=== PATIENT | male | born 1960 | race Caucasian/White ===

== ENCOUNTER 2016-08-24 09:17 | Emergency (ER) | payer OTHER ==
[~2016-08-24] VITALS: Ht 172.7 cm; Wt 86.6 kg
[~2016-08-24 09:17] MED LIST: ASCO10007; CETI-115 PO; HYDR-4246 PO; IBUP-1324 PO; MULT-806 PO; OMEG1CAP95 PO; ONDA4TAB4 PO
[2016-08-24 09:18] VITALS: Ht 172.7 cm; Wt 86.6 kg
--- OUTSIDE RECORDS SUMMARY | 2016-08-24 09:22 | XMS REPORT | Continuity of Care Document ---
Author Author [facility] Organization [facility] Address Unknown Phone Unavailable Allergies Active Description Code Type Severity Reaction Onset Reported/Identified Relationship to Patient Clinical Status Yes No Known Allergies NKMA N/A N/A 11/09/2014 Yes Aleve NKMA N/A N/A 09/02/2015 Medications Problems Procedures Results Test Result Range IgE (Immunoglobulin E) - 11/09/15 12:03 IgE (Immunoglobulin E) <20 IU/mL 0-100 Dog Dander IgE - 11/09/15 12:03 Dog Dander Class Class I NA Dog Dander IgE 0.11 IU/mL <0.05 Class Interpretation Guide IU/mL NA Cat Epithelium IgE - 11/09/15 12:03 Cat Epithelium Class Class I NA Cat Epithelium IgE 0.08 IU/mL <0.05 Dust Mites IgE (D.F.) - 11/09/15 12:03 Dust Mites (D.F) Class Negative NA Dust Mites IgE (D.F.) <0.05 IU/mL <0.05 Dust Mites IgE (D.P.) - 11/09/15 12:03 Dust Mites (D.P.)Class Negative NA Dust Mites IgE (D.P.) <0.05 IU/mL <0.05 Mold Allergy Panel - 11/09/15 12:03 Alternaria Tenuis Class Negative NA Alternaria Tenuis IgE <0.05 IU/mL <0.05 Aspergillus Fumigatus Class Negative NA Aspergillus Fumigatus IgE <0.05 IU/mL < 0.05 Auro pullulans Class Negative NA Auro. pullulans IgE <0.05 IU/mL <0.05 Corinne albicans Class Negative NA Corinne albicans IgE <0.05 IU/mL <0.05 Cladosporium Class Negative NA Cladosporium IgE <0.05 IU/mL <0.05 Epicocc Purpurancens Class Negative NA Epicocc. purpurancens IgE <0.05 IU/mL < 0.05 Fusar moniliforme Class Negative NA Fusar. moniliforme IgE <0.05 IU/mL <0.05 Helmin. halodes Class Negative NA Helmin. Halodes IgE <0.05 IU/mL <0.05 Mucor racemosis Class Negative NA Mucor racemosus IgE <0.05 IU/mL <0.05 Peniccillium notatum IgE <0.05 IU/mL < 0.05 Penicillium notatum Class Negative NA Phoma betae Class Negative NA Phoma betae IgE <0.05 IU/mL <0.05 Stemph botryosum Class Negative NA Stemph. botryosum IgE <0.05 IU/mL <0.05 Berm[place] Grass IgE - 11/09/15 12:03 Bermuda Grass Class Negative NA Bermuda Grass IgE <0.05 IU/mL <0.05 Clement Grass IgE - 11/09/15 12:03 Clement Grass Class Negative NA Clement Grass IgE <0.05 IU/mL <0.05 Horse Dander IgE - 11/09/15 12:03 Horse Dander IgE <0.35 kU/L Garrett IgE - 11/09/15 12:03 Garrett IgE <0.35 kU/L TSH with Reflex Free T4 - 01/10/16 11:18 TSH with Reflex Free T4 1.87 uIU/mL 0.35- 4.94 Encounters ACCT No. Visit Date/Time Discharge Status Pt. Type Provider Facility Loc./Unit Complaint [id number] 08/02/2013 16:16:00 08/02/2013 23 :59:59 CLS Outpatient [id number] 07/08/2013 08:11:00 07/08/2013 23 :59:59 CLS Outpatient [id number] 07/07/2013 10:54:00 07/07/2013 23 :59:59 CLS Outpatient
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
--- OUTSIDE RECORDS SUMMARY | 2016-08-24 09:22 | XMS REPORT | Referral Summary ---
Author Author [facility], Family Medicine Organization [facility] Address Unknown Phone Unavailable Care Team Providers Care Cabinetmaker Helper Name Role Phone Nadia Alexander Primary Care Physician [phone] Encounter VC Date(s): 09/20/15 - 09/20/15 [facility] [address] [place] [id number] Discharge Disposition: 01-Home or Self Care Attending Physician: Beto Alexander MD Admitting Physician: Beto Alexander MD Vital Signs Most recent to 1 oldest [Reference Range]: Blood Pressure 128/70 mmHg [90-140/60-90 mmHg] (09/20/15 9:14 AM) Problem List Condition Effective Dates Status Health Status Informant Allergic Active rhinitis/hayfever(Co nfirmed) Arthralgia of the Active pelvic region and thigh (finding)(Confirmed) Arthritis(Confirmed) Active Atrial Active fibrillation(Confirm ed) BPH (benign Active prostatic hyperplasia)(Confirm ed) Cervical spondylosis Active - C4-6(Confirmed) 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) Degenerative disc Active disease, cervical - with disc herniations a d spur complexes(Confirmed) Degenerative disc Active disease - lumbar/lumbosacral(C onfirmed) Diverticulitis(Confi Active rmed) Elevated blood Active pressure(Confirmed) Foreign body (FB) in Active soft tissue, residual(Confirmed) GERD without Active esophagitis(Confirme d) Chronic generalized Active pain(Confirmed) Graves 2006 Active disease(Confirmed) Headache(Confirmed) Active Hearing Active loss(Confirmed) Hip pain(Confirmed) Active Elevated Active cholesterol(Confirme d) Hyperthyroidism(Conf Active irmed) Elevated blood Active sugar(Confirmed) Irregular heart Active rhythm(Confirmed) IBS (irritable bowel Active syndrome)(Confirmed) Acute pain of right Active knee(Confirmed) Lateral Active epicondylitis - right(Confirmed) Low back pain Active (finding)(Confirmed) Lumbago(Confirmed) Active Lumbosacral Active spondylosis without myelopathy (disorder)(Confirmed ) Lumbosacral Active spondylosis(Confirme d) Medial epicondylitis Active - right(Confirmed) Migraine Active headache(Confirmed) Neck pain(Confirmed) Resolved Osteoarthritis(Confi Active rmed) Overactive Active bladder(Confirmed) Sleep 2000 Active apnea(Confirmed) Spinal stenosis of Active lumbar region (disorder)(Confirmed ) Spondylosis(Confirme Active d) Stenosis of spine - Active cervical and lateral recess(Confirmed) Synovitis of Active knee(Confirmed) Tendinitis of Active elbow(Confirmed) Thoracic or Active lumbosacral neuritis or radiculitis, unspecified(Confirme d) Allergies, Adverse Reactions, Alerts Substance Reaction Severity Status Aleve1 Active 1causes abdominal pain Medications ibuprofen 800 mg oral tablet 800 mg, Oral, q6hr, as needed for pain, # 90 tabs, 0 Refill(s), Pharmacy: [facility] #[id number], 800 mg Oral q6hr,PRN:as needed for pain Start Date: 07/20/14 Status: Ordered oxybutynin 5 mg oral tablet 5 mg 1 tabs, Oral, BID, as needed for urinary discomfort, # 60 tabs, 0 Refill(s) , Pharmacy: [facility] #[id number], 1 tabs Oral BID,PRN:as needed for urinary discomfort Start Date: 09/20/15 Status: Ordered Singulair 10 mg oral tablet 10 mg 1 tabs, Oral, qPM, # 30 tabs, 0 Refill(s), Pharmacy: [facility] # [id number], 1 tabs Oral qPM Start Date: 09/20/15 Status: Ordered Ventolin HFA 90 mcg/inh inhalation aerosol 1 puffs, Inhalation, q4hr, as needed for wheezing, # 8 g, 0 Refill(s), Pharmacy : [facility] #[id number], 1 puffs Inhalation q4hr,PRN:as needed for wheezing Start Date: 09/02/15 Status: Ordered Vitamin C 0 Refill(s) Start Date: 02/18/15 Status: Ordered vitamin E Oral, Daily, 0 Refill(s) Start Date: 02/18/15 Status: Ordered Results Hematology Most recent to 1 oldest [Reference Range]: WBC [4.8-10.8 9.0 10*3/uL 10*3/uL] (09/20/15 9:52 AM) RBC [4.60-6.20] 5.19 (09/20/15 9:52 AM) Hgb [14.0-18.0 16.2 gm/dL gm/dL] (09/20/15 9:52 AM) Hct [42.0-52.0 %] 46.5 % (09/20/15:52 AM) MCV [82.0-99.0 fL] 89.6 fL (09/20/15 9:52 AM) MCH [27.0-32.0 pg] 31.2 pg (09/20/15:52 AM) MCHC [32.0-36.0 34.8 gm/dL gm/dL] (09/20/15 9:52 AM) RDW [11.5-14.5 %] 12.7 % (09/20/15 9:52 AM) Platelet [150-400 245 10*3/uL 10*3/uL] (09/20/15 9:52 AM) MPV [8.8-14.8 fL] 10.7 fL (09/20/15 9:52 AM) Immature 0.3 % Granulocytes (09/20/15:52 AM) [0.0-1.0 %] Neutrophils [51-75 53 % %] (09/20/15 9:52 AM) Lymphocytes [20-46 31 % %] (09/20/15 9:52 AM) Monocytes [4-11 %] 10 % (09/20/15 9:52 AM) Eosinophils [0-4 %] 5 % *HI* (09/20/15 9:52 AM) Basophils [0-2 %] 1 % (09/20/15 9:52 AM) Neutro Absolute 4.76 10*3 [1.90-7.00 10*3] (09/20/15 9:52 AM) Lymph Absolute 2.78 10*3 [0.80-3.30 10*3] (09/20/15 9:52 AM) [place] Absolute 0.91 10*3 [0.30-1.00 10*3] (09/20/15 9:52 AM) Eos Absolute 0.48 10*3 [0.00-0.50 10*3] (09/20/15 9:52 AM) Baso Absolute 0.06 10*3 [0.00-0.20 10*3] (09/20/15 9:52 AM) Chemistry Most recent to 1 oldest [Reference Range]: Sodium Lvl [135-144 141 mEq/L mEq/L] (09/20/15:52 AM) Potassium Lvl 4.6 mEq/L [3.5-5.2 mEq/L] (09/20/15 9:52 AM) Chloride [99-111 103 mEq/L mEq/L] (09/20/15:52 AM) CO2 [23-31 mEq/L] 27 mEq/L (09/20/15:52 AM) AGAP [3-20] 11 (09/20/15:52 AM) BUN [8-26 mg/dL] 15 mg/dL (09/20/15:52 AM) Glucose Lvl [70-99 81 mg/dL mg/dL] (09/20/15:52 AM) Creatinine Lvl 0.86 mg/dL [0.72-1.25 mg/dL] (09/20/15:52 AM) eGFR [>60 mL/min] >60 mL/min 1 (09/20/15:52 AM) Calcium Lvl 9.5 mg/dL [8.9-10.5 mg/dL] (09/20/15:52 AM) Albumin Lvl [3.5-5.0 4.4 gm/dL gm/dL] (09/20/15:52 AM) Total Protein 6.4 gm/dL [6.4-8.3 gm/dL] (09/20/15 9:52 AM) Globulin [1.8-4.0 2.0 gm/dL gm/dL] (09/20/15 9:52 AM) ALT [0-55 U/L] 28 U/L (09/20/15 9:52 AM) AST [5-34 U/L] 22 U/L (09/20/15 9:52 AM) Alk Phos [40-150 58 U/L U/L] (09/20/15 9:52 AM) Bili Total [0.2-1.2 1.0 mg/dL mg/dL] (09/20/15 9:52 AM) PSA (wihout Reflex 1.2 ng/mL 2 Free) [0.0-3.5 (09/20/15 9:52 AM) ng/mL] Chol [0-199 mg/dL] 209 mg/dL *HI* (09/20/15 9:52 AM) Trig [0-149 mg/dL] 203 mg/dL *HI* (09/20/15 9:52 AM) HDL [40-84 mg/dL] 38 mg/dL *LOW* (09/20/15 9:52 AM) LDL [0-130 mg/dL] 130 mg/dL (09/20/15 9:52 AM) VLDL Cholesterol 41 mg/dL [0-28 mg/dL] *HI* (09/20/15 9:52 AM) Cardiac Risk 5.5 [0.0-5.7] (09/20/15 9:52 AM) 1Result Comment: Multiply eGFR results by 1.21 for race. 2Result Comment: AUA PSA Best Practice Guidelines: Age-Adjusted PSA Values by Ethnic Group Age Range Asians - Caucasians Americans 40-49 0-2.0 0-2.0 0-2.5 50-59 0-3.0 0-4.0 0-3.5 60-69 0-4.0 0-4.5 0-4.5 70-79 0-5.0 0-5.5 0-6.5 Urinalysis Most recent to 1 oldest [Reference Range]: UA Color Yellow (09/20/15 10:05 AM) UA Appear Clear (09/20/15 10:05 AM) UA pH [5.0-8.0] 5.5 (09/20/15 10:05 AM) UA Leuk Est Negative [Negative] (09/20/15 10:05 AM) UA Nitrite Negative [Negative] (09/20/15 10:05 AM) UA Protein Negative [Negative] (09/20/15 10:05 AM) UA Glucose Negative [Negative] (09/20/15 10:05 AM) UA Ketones Negative [Negative] (09/20/15 10:05 AM) UA Urobilinogen 0.2 mg/dL [<1.0 mg/dL] (09/20/15 10:05 AM) UA Bili [Negative] Negative (09/20/15 10:05 AM) UA Blood [Negative] Negative (09/20/15 10:05 AM) UA Spec Grav 1.014 [1.003-1.030] (09/20/15 10:05 AM) Type Voided (09/20/15 10:05 AM) Immunizations Vaccine Date Refusal Reason influenza virus vaccine, inactivated 02/14/14 influenza virus vaccine, live 03/02/10 zoster vaccine live 09/20/15 Procedures Procedure Date Related Diagnosis Body Site Collection of venous blood by venipuncture 09/20/15 Transforaminal approach - Right L2-3, L3-4 01/14/13 Transforaminal approach - right L4-5, L5-S1 12/30/12 Colonoscopy with polypectomy 2011 Procedure - right thumb nailbed matrix 2011 excision Full thickness skin graft from right index 01/02/11 and middle fingers Surgery - Volar V/Y advancement, right thumb 01/02/11 Tonsillectomy 05/09/09 Uvulopalatopharyngoplasty 05/09/09 Nasal septoplasty 11/2008 Reduction of nasal turbinate 11/2008 Nasal septoplasty 11/30/06 Colonoscopy1 06/26/05 Ablation of SVT 06/2003 Ablation - pulmonary 2002 Vasectomy 1986 Shoulder separation - left repair 1975 1Diverticulitis Social History Social History Type Response Smoking Status Former smoker Assessment and Plan Extracted from: Title: Ambulatory Patient Education Author: Beto Alexander MD Date: Family Medicine Cervical Sprain A cervical sprain is an injury in the neck in which the strong, fibrous tissues (ligaments) that connect your neck bones stretch or tear. Cervical sprains can range from mild to severe. Severe cervical sprains can cause the neck vertebrae to be unstable. This can lead to damage of the spinal cord and can result in serious nervous system problems. The amount of time it takes for a cervical sprain to get better depends on the cause and extent of the injury. Most cervical sprains heal in 1 to 3 weeks. CAUSES Severe cervical sprains may be caused by: Contact sport injuries (such as from football, rugby, wrestling, hockey, auto racing, gymnastics, diving, martial arts, or boxing). Motor vehicle collisions. Whiplash injuries. This is an injury from a sudden forward and backward whipping movement of the head and neck. Falls. Mild cervical sprains may be caused by: Being in an awkward position, such as while cradling a telephone between your ear and shoulder. Sitting in a chair that does not offer proper support. Working at a poorly designed computer station. Looking up or down for long periods of time. SYMPTOMS Pain, soreness, stiffness, or a burning sensation in the front, back, or sides of the neck. This discomfort may develop immediately after the injury or slowly, 24 hours or more after the injury. Pain or tenderness directly in the middle of the back of the neck. Shoulder or upper back pain. Limited ability to move the neck. Headache. Dizziness. Weakness, numbness, or tingling in the hands or arms. Muscle spasms. Difficulty swallowing or chewing. Tenderness and swelling of the neck. DIAGNOSIS Most of the time your health care provider can diagnose a cervical sprain by taking your history and doing a physical exam. Your health care provider will ask about previous neck injuries and any known neck problems, such as arthritis in the neck. X-rays may be taken to find out if there are any other problems, such as with the bones of the neck. Other tests, such as a CT scan or MRI, may also be needed. TREATMENT Treatment depends on the severity of the cervical sprain. Mild sprains can be treated with rest, keeping the neck in place (immobilization), and pain medicines. Severe cervical sprains are immediately immobilized. Further treatment is done to help with pain, muscle spasms, and other symptoms and may include: Medicines, such as pain relievers, numbing medicines, or muscle relaxants. Physical therapy. This may involve stretching exercises, strengthening exercises, and posture training. Exercises and improved posture can help stabilize the neck, strengthen muscles, and help stop symptoms from returning. HOME CARE INSTRUCTIONS Put ice on the injured area. Put ice in a plastic bag. Place a towel between your skin and the bag. Leave the ice on for 1520 minutes, 34 times a day. If your injury was severe, you may have been given a cervical collar to wear. A cervical collar is a two-piece collar designed to keep your neck from moving while it heals. Do not remove the collar unless instructed by your health care provider. If you have long hair, keep it outside of the collar. Ask your health care provider before making any adjustments to your collar. Minor adjustments may be required over time to improve comfort and reduce pressure on your chin or on the back of your head. Ifyou are allowed to remove the collar for cleaning or bathing, follow your health care provider's instructions on how to do so safely. Keep your collar clean by wiping it with mild soap and water and drying it completely. If the collar you have been given includes removable pads, remove them every 12 days and hand wash them with soap and water. Allow them to air dry. They should be completely dry before you wear them in the collar. If you are allowed to remove the collar for cleaning and bathing, wash and dry the skin of your neck. Check your skin for irritation or sores. If you see any, tell your health care provider. Do not drive while wearing the collar. Only take [id number] or prescription medicines for pain, discomfort , or fever as directed by your health care provider. Keep all follow-up appointments as directed by your health care provider. Keep all physical therapy appointments as directed by your health care provider. Make any needed adjustments to your workstation to promote good posture. Avoid positions and activities that make your symptoms worse. Warm up and stretch before being active to help prevent problems. SEEK MEDICAL CARE IF: Your pain is not controlled with medicine. You are unable to decrease your pain medicine over time as planned. Your activity level is not improving as expected. SEEK IMMEDIATE MEDICAL CARE IF: You develop any bleeding. You develop stomach upset. You have signs of an allergic reaction to your medicine. Your symptoms get worse. You develop new, unexplained symptoms. You have numbness, tingling, weakness, or paralysis in any part of your body. MAKE SURE YOU: Understand these instructions. Will watch your condition. Will get help right away if you are not doing well or get worse. This information is not intended to replace advice given to you by your health care provider. Make sure you discuss any questions you have with your health care provider. Document Released: 03/15/2008 Document Revised: 05/24/2014 Document Reviewed: [facility] Patient Information 2015 Figure 8 Surgical. Benign Prostatic Hyperplasia An enlarged prostate (benign prostatic hyperplasia) is common in older men. You may experience the following: Weak urine stream. Dribbling. Feeling like the bladder has not emptied completely. Difficulty starting urination. Getting up frequently at night to urinate. Urinating more frequently during the day. HOME CARE INSTRUCTIONS Monitor your prostatic hyperplasia for any changes. The following actions may help to alleviate any discomfort you are experiencing: Give yourself time when you urinate. Stay away from alcohol. Avoid beverages containing caffeine, such as coffee, tea, and kiah, because they can make the problem worse. Avoid decongestants, antihistamines, and some prescription medicines that can make the problem worse. Follow up with your health care provider for further treatment as recommended. SEEK MEDICAL CARE IF: You are experiencing progressive difficulty voiding. Your urine stream is progressively getting narrower. You are awaking from sleep with the urge to void more frequently. You are constantly feeling the need to void. You experience loss of urine, especially in small amounts. SEEK IMMEDIATE MEDICAL CARE IF: You develop increased pain with urination or are unable to urinate. You develop severe abdominal pain, vomiting, a high fever, or fainting. You develop back pain or blood in your urine. MAKE SURE YOU: Understand these instructions. Will watch your condition. Will get help right away if you are not doing well or get worse. This information is not intended to replace advice given to you by your health care provider. Make sure you discuss any questions you have with your health care provider. Document Released: 05/19/2006 Document Revised: 03/07/2015 Document Reviewed: [facility] Patient Information 2015 Figure 8 Surgical. No follow up information was provided. Extracted from: Title: Office Visit Note Author: Beto Alexander MD Date: 09/20/15 Assessment/Plan Adult general medical exam No forms. Lab pending. The patient was given the vaccines requested per protocol and according to those needed for school/family/college/etc. Shingles vaccine given per request. BPH (benign prostatic hyperplasia) This issue was reviewed, appears stable, and current therapy continued except as mentioned. Appropriate lab was reviewed from the most recent appropriate entry and lab was ordered if needed in the cpoe/nursing orders, and follow up recommended generally in 90 days and no later then six months. Did well with daily cialis but not covered by insurance. Lab pending. Chronic generalized pain This issue was reviewed, appears stable, and current therapy continued except as mentioned. Appropriate lab was reviewed from the most recent appropriate entry and lab was ordered if needed in the cpoe/nursing orders, and follow up recommended generally in 90 days and no later then six months. Not needing meds at this time. Cough Trial of singulair 10mg po daily. Hasconsult pending with pulmonology. Elevated blood pressure The patient's issue is nearly or completely resolved. There is no further issues or testing desired by them at this time. The patient had an elevated blood pressure reading and is to monitor their bp and call with a report if consistently > 140/90. Elevated blood sugar This issue was reviewed, appears stable, and current therapy continued except as mentioned. Appropriate lab was reviewed from the most recent appropriate entry and lab was ordered if needed in the cpoe/nursing orders, and follow up recommended generally in 90 days and no later then six months. Lab pending. Elevated cholesterol This issue was reviewed, appears stable, and current therapy continued except as mentioned. Appropriate lab was reviewed from the most recent appropriate entry and lab was ordered if needed in the cpoe/nursing orders, and follow up recommended generally in 90 days and no later then six months. Lab pending. Neck pain The patient's issue is nearly or completely resolved. There is no further issues or testing desired by them at this time. Not requiring meds at this time. OAB (overactive bladder) Trial of oxybutinin 10mg po bid prn. Side effects discussed.
--- OUTSIDE RECORDS SUMMARY | 2016-08-24 09:22 | XMS REPORT | Referral Summary ---
Author Author [facility], [facility] Organization [facility] Address Unknown Phone Unavailable Care Team Providers Care Manuscript Reader Name Role Phone Nadia Alexander Primary Care Physician [phone] Encounter VC Date(s): 11/09/14 - 11/09/14 [facility] [address] [place] [id number] Discharge Disposition: 01-Home or Self Care Attending Physician: Beto Alexander MD Admitting Physician: Beto Alexander MD Vital Signs Most recent to 1 oldest [Reference Range]: Blood Pressure 130/90 mmHg [90-140/60-90 mmHg] (11/09/14 11:34 AM) Problem List Condition Effective Dates Status Health Status Informant Allergic Active rhinitis/hayfever(Co nfirmed) Arthralgia of the Active pelvic region and thigh (finding)(Confirmed) Arthritis(Confirmed) Active Atrial Active fibrillation(Confirm ed) Back pain in Resolved (Confirmed) Cervical spondylosis Active - C4-6(Confirmed) 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) Degenerative disc Active disease - lumbar/lumbosacral(C onfirmed) Degenerative disc Active disease, cervical - with disc herniations a d spur complexes(Confirmed) Diverticulitis(Confi Active rmed) Elevated blood Active pressure(Confirmed) Foreign body (FB) in Active soft tissue, residual(Confirmed) Chronic generalized Active pain(Confirmed) Graves 2006 Active disease(Confirmed) Headache(Confirmed) Active Hearing Active loss(Confirmed) Hip pain(Confirmed) Active Elevated Active cholesterol(Confirme d) Hyperthyroidism(Conf Active irmed) Elevated blood Active sugar(Confirmed) Irregular heart Active rhythm(Confirmed) IBS (irritable bowel Active syndrome)(Confirmed) Acute pain of right Active knee(Confirmed) Lateral Active epicondylitis - right(Confirmed) Low back pain Active (finding)(Confirmed) Lumbago(Confirmed) Active Lumbosacral Active spondylosis(Confirme d) Lumbosacral Active spondylosis without myelopathy (disorder)(Confirmed ) Medial epicondylitis Active - right(Confirmed) Migraine Active headache(Confirmed) Neck pain(Confirmed) Resolved Osteoarthritis(Confi Active rmed) Overactive Active bladder(Confirmed) Sleep 2000 Active apnea(Confirmed) Spinal stenosis of Active lumbar region (disorder)(Confirmed ) Spondylosis(Confirme Active d) Stenosis of spine - Active cervical and lateral recess(Confirmed) Synovitis of Active knee(Confirmed) Tendinitis of Active elbow(Confirmed) Thoracic or Active lumbosacral neuritis or radiculitis, unspecified(Confirme d) Allergies, Adverse Reactions, Alerts No Known Allergies Medications albuterol CFC free 90 mcg/inh inhalation aerosol 2 puffs, Inhalation, q6hr, as needed for wheezing, # 8 g, 0 Refill(s), called to pharmacy (Rx) Start Date: 02/18/15 Status: Ordered ibuprofen 800 mg oral tablet 800 mg, Oral, q6hr, as needed for pain, # 90 tabs, 0 Refill(s), Pharmacy: [facility] #[id number], 800 mg Oral q6hr,PRN:as needed for pain Start Date: 07/20/14 Status: Ordered [place] 5 mg-325 mg oral tablet 1-2 tabs, Oral, q8hr, [place] Must last 30 days NEEDS APPT PRIOR TO ADDITIONAL REFILLS, # 90 tabs, 0 Refill(s) Start Date: 10/18/14 Status: Ordered PriLOSEC 40 mg oral delayed release capsule 40 mg 1 caps, Oral, Daily, before a meal, # 30 caps, 0 Refill(s), Pharmacy: [facility] #[id number], 1 caps Oral Daily,Instr:before a meal Start Date: 12/22/14 Status: Ordered Vitamin C 0 Refill(s) Start Date: 02/18/15 Status: Ordered vitamin E Oral, Daily, 0 Refill(s) Start Date: 02/18/15 Status: Ordered Results Hematology Most recent to 1 oldest [Reference Range]: WBC [4.8-10.8 6.3 10*3/uL 10*3/uL] (11/09/14 12:10 PM) RBC [4.60-6.20 4.95 10*6/uL 10*6/uL] (11/09/14 12:10 PM) Hgb [14.0-18.0 15.5 gm/dL gm/dL] (11/09/14 12:10 PM) Hct [42.0-52.0 %] 43.4 % (11/09/14 12:10 PM) MCV [82.0-99.0 fL] 87.7 fL (11/09/14:10 PM) MCH [27.0-32.0 pg] 31.3 pg (11/09/14:10 PM) MCHC [32.0-36.0 35.7 gm/dL gm/dL] (11/09/14 12:10 PM) RDW [11.5-14.5 %] 13.0 % (11/09/14:10 PM) Platelet [150-400 271 10*3/uL 10*3/uL] (11/09/14 12:10 PM) MPV [8.8-14.8 fL] 10.6 fL (11/09/14 12:10 PM) Immature 0.3 % Granulocytes (11/09/14:10 PM) [0.0-1.0 %] Neutrophils [51-75 48 % %] *LOW* (11/09/14:10 PM) Lymphocytes [20-46 35 % %] (11/09/14 12:10 PM) Monocytes [4-11 %] 12 % *HI* (11/09/14:10 PM) Eosinophils [0-4 %] 5 % *HI* (11/09/14 12:10 PM) Basophils [0-2 %] 1 % (11/09/14 12:10 PM) Neutro Absolute 3.00 10*3 [1.90-7.00 10*3] (11/09/14 12:10 PM) Lymph Absolute 2.18 10*3 [0.80-3.30 10*3] (11/09/14 12:10 PM) [place] Absolute 0.72 10*3 [0.30-1.00 10*3] (11/09/14 12:10 PM) Eos Absolute 0.32 10*3 [0.00-0.50 10*3] (11/09/14 12:10 PM) Baso Absolute 0.04 10*3 [0.00-0.20 10*3] (11/09/14:10 PM) Sed Rate [0-15 7 mm/hr mm/hr] (11/09/14 PM) Chemistry Most recent to 1 oldest [Reference Range]: Sodium Lvl [135-144 142 mEq/L mEq/L] (11/09/14:10 PM) Potassium Lvl 4.1 mEq/L [3.5-5.2 mEq/L] (11/09/14:10 PM) Chloride [99-111 110 mEq/L mEq/L] (11/09/14: PM) CO2 [23-31 mEq/L] 22 mEq/L *LOW* (11/09/14 PM) AGAP [3-20] 10 (11/09/14:10 PM) BUN [8-26 mg/dL] 15 mg/dL (11/09/14 PM) Glucose Lvl [70-99 102 mg/dL mg/dL] *HI* (11/09/14: PM) Creatinine Lvl 0.82 mg/dL [0.72-1.25 mg/dL] (11/09/14:10 PM) eGFR [>60 mL/min] >60 mL/min 1 (11/09/14:10 PM) Calcium Lvl 10.0 mg/dL [8.9-10.5 mg/dL] (11/09/14:10 PM) Albumin Lvl [3.5-5.0 4.6 gm/dL gm/dL] (11/09/14:10 PM) Total Protein 6.9 gm/dL [6.4-8.3 gm/dL] (11/09/14:10 PM) Globulin [1.8-4.0 2.3 gm/dL gm/dL] (11/09/14:10 PM) ALT [0-55 U/L] 66 U/L *HI* (11/09/14 12:10 PM) AST [5-34 U/L] 35 U/L *HI* (11/09/14:10 PM) Alk Phos [40-150 77 U/L U/L] (11/09/14 12:10 PM) Bili Total [0.2-1.2 0.6 mg/dL mg/dL] (11/09/14 12:10 PM) TSH with Reflex Free 1.04 T4 [0.35-4.94] (11/09/14 12:10 PM) 1Result Comment: Multiply eGFR results by 1.21 for race. Immunizations Vaccine Date Refusal Reason influenza virus vaccine, inactivated 02/14/14 influenza virus vaccine, live 03/02/10 Procedures Procedure Date Related Diagnosis Body Site Collection of venous blood by venipuncture 11/09/14 Transforaminal approach - Right L2-3, L3-4 01/14/13 [...] Patient Education Author: Beto Alexander MD Date: 03/16 Emergency Medicine Abdominal Pain, Adult Many things can cause abdominal pain. Usually, abdominal pain is not caused by a disease and will improve without treatment. It can often be observed and treated at home. Your health care provider will do a physical exam and possibly order blood tests and X-rays to help determine the seriousness of your pain. However, in many cases, more time must pass before a clear cause of the pain can be found. Before that point, your health care provider may not know if you need more testing or further treatment. HOME CARE INSTRUCTIONS Monitor your abdominal pain for any changes. The following actions may help to alleviate any discomfort you are experiencing: Only take ulse-vim-qryuczo or prescription medicines as directed by your health care provider. Do not take laxatives unless directed to do so by your health care provider. Try a clear liquid diet (broth, tea, or water) as directed by your health care provider. Slowly move to a bland diet as tolerated. SEEK MEDICAL CARE IF: You have unexplained abdominal pain. You have abdominal pain associated with nausea or diarrhea. You have pain when you urinate or have a bowel movement. You experience abdominal pain that wakes you in the night. You have abdominal pain that is worsened or improved by eating food. You have abdominal pain that is worsened with eating fatty foods. SEEK IMMEDIATE MEDICAL CARE IF: Your pain does not go away within 2 hours. You have a fever. You keep throwing up (vomiting ). Your pain is felt only in portions of the abdomen, such as the right side or the left lower portion of the abdomen. You pass bloody or black tarry stools. MAKE SURE YOU: Understand these instructions. Will watch your condition. Will get help right away if you are not doing well or get worse. Document Released: 02/26/2006 Document Revised: 03/09/2014 Document Reviewed: [facility] Patient Information 2014 [employer]. No follow up information was provided. Extracted from: Title: Office Visit Note Author: Beto Alexander MD Date: 11/09/14 Assessment/Plan Acute pain of right knee, Knee pain Lab and MRI pending. Consider consult when willing.Declinessteroid injection. A work/school note was offered and deferred by the patient. Ordered: MRI LE Joint w/o Contrast Right Elevated blood sugar This issue is stable and appropriate refills, lab, and f/ u have been discussed. Lab pending. Elevated cholesterol This issue is stable and appropriate refills, lab, and f/ u have been discussed. IBS (irritable bowel syndrome) The patient's issue is nearly or completely resolved. There is no further issues or testing desired by them at this time. Linzess not needed at this time. Joint pain This issue is stable and appropriate refills, lab, and f/u have been discussed. Trial of cymbalta 30mg po qhs. Side effects discussed. Call report in 14 days or sooner prn. Ordered: CBC w/ Differential Comprehensive Metabolic Panel Sedimentation Rate TSH with Reflex Free T4 Low back pain (finding) This issue is stable and appropriate refills, lab, and f/u have been discussed. Neck pain This issue is stable and appropriate refills, lab, and f/u have been discussed.
--- OUTSIDE RECORDS SUMMARY | 2016-08-24 09:22 | XMS REPORT | Referral Summary ---
Author Author [facility], Immediate [facility] Organization [facility] Address Unknown Phone Unavailable Care Team Providers Care Wood Car Builder Name Role Phone Nadia Alexander Primary Care Physician [phone] Encounter VC Date(s): 02/18/15 - 02/18/15 [facility], [address] [place] [id number] Discharge Disposition: 01-Home or Self Care Attending Physician: Beto Alexander MD Admitting Physician: Beto Alexander MD Vital Signs Most recent to 1 oldest [Reference Range]: Temperature Tympanic 36.1 degC [36.6-38.1 degC] *LOW* (02/18/15 11:37 AM) Peripheral Pulse 74 bpm Rate [60-100 bpm] (02/18/15 11:37 AM) Blood Pressure 132/82 mmHg [90-140/60-90 mmHg] (02/18/15 11:37 AM) SpO2 95 % (02/18/15 11:37 AM) Problem List Condition Effective Dates Status [...] tissue, residual(Confirmed) Chronic generalized Active pain(Confirmed) Graves 2005 Active disease(Confirmed) Headache(Confirmed) Active Hearing Active loss(Confirmed) [...] pain, # 90 tabs, 0 Refill(s), Pharmacy: [facility] #[id number], 800 mg Oral q6hr,PRN:as needed for pain Start Date: 07/20/14 Status: Ordered [place] 5 mg-325 mg oral tablet 1-2 tabs, Oral, q8hr, [place] Must last 30 days NEEDS APPT PRIOR TO ADDITIONAL REFILLS, # 90 tabs, 0 Refill(s) Start Date: 10/18/14 Status: Ordered PriLOSEC 40 mg oral delayed release capsule 40 mg 1 caps, Oral, Daily, before a meal, # 30 caps, 0 Refill(s), Pharmacy: [facility] #[id number], 1 caps Oral Daily,Instr:before a meal Start Date: 12/22/14 Status: Ordered Vitamin C 0 Refill(s) Start Date: 02/18/15 Status: Ordered vitamin E Oral, Daily, 0 Refill(s) Start Date: 02/18/15 Status: Ordered Results No data available for this section Immunizations Vaccine Date Refusal Reason influenza virus vaccine, inactivated 02/14/14 influenza virus vaccine, live 03/02/10 Procedures Procedure Date Related Diagnosis Body Site Transforaminal approach - Right L2-3, L3-4 01/14/13 [...] SVT 06/2003 Ablation - pulmonary 2002 Vasectomy 1985 Shoulder separation - left repair 1975 1Diverticulitis Social History Social History Type Response Smoking Status Former smoker Assessment and Plan Extracted from: Title: Ambulatory Patient Education Author: Beto Alexander MD Date: Infectious Disease Fever, Adult A fever is a higher than normal body temperature. In an adult, an oral temperature around 98.6 F (37 C) is considered normal. A temperature of 100.4 F (38 C) or higher is generally considered a fever. Mild or moderate fevers generally have no long-term effects and often do not require treatment. Extreme fever (greater than or equal to 106 F or 41.1 C) can cause seizures. The sweating that may occur with repeated or prolonged fever may cause dehydration. Elderly people can develop confusion during a fever. A measured temperature can vary with: Age. Time of day. Method of measurement (mouth, underarm, rectal, or ear). The fever is confirmed by taking a temperature with a thermometer. Temperatures can be taken different ways. Some methods are accurate and some are not. An oral temperature is used most commonly. Electronic thermometers are fast and accurate. An ear temperature will only be accurate if the thermometer is positioned as recommended by the screw machine repairer. A rectal temperature is accurate and done for those adults who have a condition where an oral temperature cannot be taken. An underarm (axillary) temperature is not accurate and not recommended. Fever is a symptom, not a disease. CAUSES Infections commonly cause fever. Some noninfectious causes for fever include: Some arthritis conditions. Some thyroid or adrenal gland conditions. Some immune system conditions. Some types of cancer. A medicine reaction. High doses of certain street drugs such as methamphetamine. Dehydration. Exposure to high outside or room temperatures. Occasionally, the source of a fever cannot be determined. This is sometimes called a "fever of unknown origin" (FUO). Some situations may lead to a temporary rise in body temperature that may go away on its own. Examples are: Childbirth. Surgery. Intense exercise. HOME CARE INSTRUCTIONS Take appropriate medicines for fever. Follow dosing instructions carefully. If you use acetaminophen to reduce the fever, be careful to avoid taking other medicines that also contain acetaminophen. Do not take aspirin for a fever if you are younger than age 19. There is an association with José Antonio's syndrome. José Antonio's syndrome is a rare but potentially deadly disease. If an infection is present and antibiotics have been prescribed, take them as directed. Finish them even if you start to feel better. Rest as needed. Maintain an adequate fluid intake. To prevent dehydration during an illness with prolonged or recurrent fever, you may need to drink extra fluid. Drink enough fluids to keep your urine clear or pale yellow. Sponging or bathing with room temperature water may help reduce body temperature. Do not use ice water or alcohol sponge baths. Dress comfortably, but do not over-bundle. SEEK MEDICAL CARE IF: You are unable to keep fluids down. You develop vomiting or diarrhea. You are not feeling at least partly better after 3 days. You develop new symptoms or problems. SEEK IMMEDIATE MEDICAL CARE IF: You have shortness of breath or trouble breathing. You develop excessive weakness. You are dizzy or you faint. You are extremely thirsty or you are making little or no urine. You develop new pain that was not there before (such as in the head, neck, chest, back, or abdomen). You have persistent vomiting and diarrhea for more than 1 to 2 days. You develop a stiff neck or your eyes become sensitive to light. You develop a skin rash. You have a fever or persistent symptoms for more than 2 to 3 days. You have a fever and your symptoms suddenly get worse. MAKE SURE YOU: Understand these instructions. Will watch your condition. Will get help right away if you are not doing well or get worse. Document Released: 11/12/2001 Document Revised: 10/03/2014 Document Reviewed: [employer] Patient Information 2015 [facility]. This information is not intended to replace advice given to you by your health care provider. Make sure you discuss any questions you have with your health care provider. No follow up information was provided. Extracted from: Title: Office Visit Note Author: Beto Alexander MD Date: 02/18/15 Assessment/Plan Acute right otitis media Work note given. Zpack and prednisone 20mg po daily fortendays was given. The patient has family members present who are agreeable with today's plan and have no additional concerns or requests. here. CAP (community acquired pneumonia) See above. Needs cxr if not improving. To ER prn. Cough Albuterol mdi two puffs q6 prn.Solumedrol 80mg IM for wheezing.
--- OUTSIDE RECORDS SUMMARY | 2016-08-24 09:22 | XMS REPORT | Continuity of Care Document ---
Author Author Benjamin PARNELL, Beto VELIZ W Organization [facility] Address [address] [place] [address] Dr Hailey Candelaria [place] [address] Phone Care Team Providers Care Locker Attendant Name Role Phone Beto Alexander PP Unavailable Beto Alexander RP Unavailable Payers Payer name Insurance type Covered alliance party ID Authorization(s) Unknown Problems Condition Effective Dates (start - stop) Clinical Status Lumbago - *Controlled Cervicalgia - *Controlled CHRONIC PAIN NEC - *Controlled Urinary frequency - *Resolved Elevated blood pressure reading without diagnosis of hypertension - *Controlled Pain in limb - *Chronic Other and unspecified hyperlipidemia - *Controlled Abdominal pain, right lower quadrant - *Chronic Erectile Dysfunction - *Chronic Hypertonicity of bladder - *Chronic Lumbago - *Chronic Pain in limb - *Chronic Pain in joint, site unspecified - *Chronic Elevated blood pressure reading without diagnosis of hypertension - *Chronic Actinic keratosis - *Chronic Insomnia, Other - *Controlled CHRONIC PAIN NEC - *Chronic Cervicalgia - *Chronic Hypertonicity of bladder - *Chronic Erectile Dysfunction - *Chronic Health examination of defined subpopulation - *Acute Pain in limb - *Chronic Other specified disease of nail - *Chronic Lumbago - *Chronic Cervicalgia - *Chronic Hypertonicity of bladder - *Chronic Other and unspecified hyperlipidemia - *Chronic Osteoarthrosis, generalized, involving unspecified site - * Chronic Lumbago - *Chronic Aftercare following surgery of the musculoskeletal system, nec - *Poor control Primary osteoarthritis of right hip - *Symptomatic Other and unspecified injury to finger - Improved Pain in joint involving pelvic region and thigh - Chronic Pain in joint involving pelvic region and thigh - *Chronic Radiculitis, Thoracic or Lumbar - *Symptomatic Spinal stenosis of lumbar region - *Chronic Lumbosacral spondylosis without myelopathy - *Chronic Degeneration of lumbar or lumbosacral intervertebral disc - * Chronic Lumbago - *Symptomatic Trochanteric bursitis of right hip - *Chronic 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 NOS - OLD FB IN SOFT TISSUE - HYPERTONICITY OF BLADDER - DVRTCLI COLON W/O HMRHG - ALLERGIC RHINITIS NEC - ATRIAL FIBRILLATION - SENSONEUR HEAR LOSS ASYM - THYROTOX NOS NO CRISIS - Cervicalgia - *Chronic Pain in limb - *Chronic Lumbago - *Chronic Hypertonicity of bladder - *Chronic Pain in joint involving pelvic region and thigh - *Symptomatic Radiculitis, Thoracic or Lumbar - *Symptomatic Cellulitis - *Acute Pain in joint, pelvic region and thigh - *Acute Unspecified tinnitus - *Chronic Diverticulosis of colon (without mention of hemorr - *Chronic Hypertonicity of bladder - *Chronic CHRONIC PAIN [facility] - *Chronic Lumbago - *Chronic Pain in limb - *Chronic Pain in limb - *Chronic Lumbago - *Chronic Dizziness - *Acute Headache - *Chronic Pain in limb - *Chronic Erectile Dysfunction - *Chronic Hypertonicity of bladder - *Chronic Radiculitis, Thoracic or Lumbar - Chronic Spinal stenosis of lumbar region - Chronic Radiculitis, Thoracic or Lumbar - *Chronic Spinal stenosis of lumbar region - *Chronic Right hip pain - *Symptomatic Radiculitis, Thoracic or Lumbar - Chronic Spinal stenosis of lumbar region - Chronic Radiculitis, Thoracic or Lumbar - *Chronic Spinal stenosis of lumbar region - *Chronic Lumbago - *Controlled Hypertonicity of bladder - *Stable Routine Medical Exam - *Acute Other and unspecified hyperlipidemia - *Chronic Fatigue / Malaise - *Chronic Hypertonicity of bladder - *Chronic Urinary frequency - *Chronic CHRONIC PAIN NEC - *Chronic Cervicalgia - *Chronic Lumbago - *Chronic Hypertonicity of bladder - *Chronic Lumbago - *Chronic Sinusitis, Acute - *Acute Family History Family Member Diagnosis Age At Onset Status Father (Unknown) Hearing deficiency Yes Brother (Unknown) Sarcoidosis Yes Sister (Unknown) Cancer - breast Yes Father (Unknown) Cancer -prostate Yes Mother (Unknown) Alive and well (Unknown) Brother (Unknown) Alcoholism Yes Father (Unknown) Alive and well (Unknown) Brother (Unknown) Diabetes Yes Social History Social History Element Description Quantity alcohol Allergies, Adverse Reactions, Alerts Substance Reaction Severity Status Unknown Medications Medication Instructions Dosage Effective Dates (start - stop) Status aspirin 81 mg chewable tablet chew 1 tablet (81MG) by oral route every day 81 MG - Active Allergy-Time 4 mg tablet take 1 tablet (4MG) by oral route every 4 hours as needed 4 MG - Active supplements qd - No Longer Active ibuprofen 800 mg tablet take 1 tablet (800MG) by oral route 3 times every day with food 800 MG - Active Fish Oil 1,000 mg capsule take 2 Capsule by Oral route 2 times every day 0 - Active Multiple Vitamins Daily tablet take 1 by Oral route every day 0 2013 - Active Percocet 5 mg-325 mg tablet take 1 tablet by oral route every 6 hours as needed 0 - Active Immunizations Vaccine Date Status Comments flu (split) (3 yrs or older) completed - Completed reason: source unspecified Results Test Name Date and Time Measure Units Reference Range Abnormal Flag Comments Panel Description: CBC WBC 11:26:00 5.6 K/uL 4.8-10.8 RBC 11:26:00 5.02 M/uL 4.60-6.20 HGB 11:26:00 15.5 g/dl 14.0-18.0 HCT 11:26:00 43.0 % 42.0-52.0 MCV 11:26:00 85.7 fL 82.0-99.0 MCH 11:26:00 30.9 pg 27.0-32.0 MCHC 11:26:00 36.0 g/dL 32.0-36.0 RDW 11:26:00 12.2 % 11.5-14.5 MPV 11:26:00 10.6 fL 8.8-14.8 Platelet Count 11:26:00 262 K/uL 150-400 Immature Granulocytes 11:26:00 0.2 % 0.0-1.0 Absolute Neutrophils 11:26:00 2.47 THOUS 1.90-7.00 Absolute Lymphocytes 11:26:00 2.13 THOUS 0.80-3.30 Absolute Monocytes 11:26:00 0.69 THOUS 0.30-1.00 Absolute Eosinophils 11:26:00 0.22 THOUS 0.00-0.50 Absolute Basophils 11:26:00 0.03 THOUS 0.00-0.20 Neutrophils 11:26:00 45 % 51-75 L Lymphocytes 11:26:00 38 % 20-46 Monocytes 11:26:00 12 % 4-11 H Eosinophils 11:26:00 4 % 0-4 Basophils 11:26:00 1 % 0-2 Testing performed at [facility] [address] [place] [address] Ems Coordinator Roland Conn MD Panel Description: RA-Rheumatoid Rrubcc-YO-SBF Rheumatoid Factor 11:26:00 <15 IU/mL 0-29 Testing performed at [facility] [address] [place] [address] Ems Coordinator Roland Conn MD Panel Description: C-Reactive Jiywcab-MP-IWY C-Reactive Protein 11:26:00 <0.5 mg/dL <0.5 Testing performed at [facility] [address] [place] [address] Ems Coordinator Roland Conn MD Panel Description: Urinalysis with Reflex Microscopic Appearance 11:26:00 Cloudy A Color 11:26:00 Yellow Glucose, Urine 11:26:00 Negative Negative Ketones 11:26:00 Trace Negative A Blood 11:26:00 Negative Negative Protein 11:26:00 Negative Negative Nitrites 11:26:00 Negative Negative Bilirubin 11:26:00 Negative Negative Specific Irma 11:26:00 1.024 1.003-1.03 pH 11:26:00 5.5 5.0-8.0 Urobilinogen 11:26:00 0.2 mg/dL <1.0 Leukocyte Esterase 11:26:00 Negative Negative Testing performed at [facility] [address] [place] [address] Ems Coordinator Roland Conn MD Panel Description: LASHONDA-Reflex QT if Positive LASHONDA 11:26:00 Negative Negative Panel Description: Sedrate Sedimentation Rate 11:26:00 8 mm/hr 0-15 Testing performed at [facility] [address] [place] [address] Ems Coordinator Roland Conn MD Panel Description: Chemistry Profile Glucose 11:26:00 88 mg/dL 70-99 BUN 11:26:00 21 mg/dL 8-26 Creatinine 11:26:00 0.78 mg/dL 0.72-1.25 Calcium 11:26:00 10.1 mg/dL 8.9-10.5 Sodium 11:26:00 141 mEq/L 135-144 Potassium 11:26:00 4.3 mEq/L 3.5-5.2 Chloride 11:26:00 107 mEq/L 99-111 CO2 11:26:00 25 mEq/L 23-31 Albumin 11:26:00 4.5 g/dL 3.5-5.0 Bilirubin Total 11:26:00 0.6 mg/dL 0.2-1.2 Alkaline Phosphatase 11:26:00 69 U/L 40-150 Protein 11:26:00 6.6 g/dL 6.4-8.3 ALT (SGPT) 11:26:00 37 U/L 0-55 AST (SGOT) 11:26:00 34 U/L 5-34 Anion Gap 11:26:00 9 3-20 Globulin 11:26:00 2.1 g/dL 1.8-4.0 Testing performed at [facility] [address] [place] [id number] Ems Coordinator Roland Conn MD Panel Description: Lipid Profile-[facility] Cholesterol 11:26:00 172 mg/dL 0-199 Triglycerides 11:26:00 89 mg/dL 0-149 HDL Cholesterol 11:26:00 39 mg/dL 40-84 L LDL Cholesterol 11:26:00 115 mg/dL 0-130 VLDL Cholesterol 11:26:00 18 mg/dL 0-28 Cardiac Risk 11:26:00 4.4 0.0-5.7 Testing performed at [facility] [place] [address] Ems Coordinator Roland Conn MD Panel Description: Non-HDL Cholesterol-[facility] Non-HDL Cholesterol 11:26:00 133 mg/dL 0-159 Testing performed at [facility] [place] [address] Ems Coordinator Roland Conn MD Panel Description: EGFR-[facility] eGFR 11:26:00 >60 mL/min >60 Multiply eGFR results by 1.21 for race.Testing performed at [facility] [place] [address] Ems Coordinator Roland Conn MD Panel Description: Direct Bilirubin Bilirubin Direct 11:26:00 0.3 mg/dL 0.0-0.5 Testing performed at [facility] [place] [address] Ems Coordinator Roland Conn MD Panel Description: Uric Acid Uric Acid 11:26:00 6.1 mg/dL 3.5-7.2 Testing performed at [facility] [place] [address] Ems Coordinator Roland Conn MD Panel Description: Prostatic Specific Antigen-[facility] PSA 11:26:00 0.7 ng/mL 0.0-3.5 AUA PSA Best Practice Guidelines: Age-Adjusted PSA Values by Ethnic GroupAge Range Asians - Caucasians [id number] 0-2.0 0-2.0 0-2.550-59 0-3.0 0-4.0 0-3.560-69 0-4.0 0-4.5 0-4.570-79 0-5.0 0-5.5 0-6.5Testing performed at [facility] [place] [address] Ems Coordinator Roland Conn MD Vital Signs Date / Time: Height Weight Pulse Rate Blood Pressure Temperature /10:54:00 68.00 in 193.00 lbs 140/70 mm[Hg] 96.3 F Procedures Procedure Date Unknown Encounters Encounter Location Date Patient Visit [facility] New FM Patient Visit [facility] New FM Patient Visit [facility] Mur Rheum Patient Visit [facility] New FM Patient Visit [facility] New FM Patient Visit [facility] Mur Occ Med Patient Visit [facility] New FM Patient Visit [facility] New FM Patient Visit [facility] FC Ortho Patient Visit [facility] Catrina Berry Patient Visit [facility] FC Ortho Patient Visit [facility] FC Pain Patient Visit [facility] FC Ortho Patient Visit Conversion Patient Visit [facility] New FM Patient Visit [facility] FC Pain Patient Visit [facility] Imm Care Patient Visit [facility] New FM Patient Visit [facility] New FM Patient Visit [facility] New FM Patient Visit [facility] New FM Patient Visit [facility] FC Pain Patient Visit [facility] Catrina Berry Patient Visit [facility] FC Pain Patient Visit [facility] New FM Patient Visit [facility] New FM Patient Visit [facility] New FM Patient Visit Con[facility] Advance Directives Directive Effective Date Unknown
--- OUTSIDE RECORDS SUMMARY | 2016-08-24 09:22 | XMS REPORT | Referral Summary ---
Author Author [facility] Organization [facility] Address Unknown Phone Unavailable Care Team Providers Care Value Stream Coach Name Role Phone Nadia Alexander Primary Care Physician [phone] Encounter [facility] Date(s): 11/08/15 - 11/08/15 [facility] [address] [place] [address] Dr Candelaria [place] [id number]- Discharge Diagnosis: LLQ abdominal pain Discharge Diagnosis: Generalized abdominal pain Discharge Disposition: 01-Home or Self Care Attending Physician: Gabo Tinsley MD Admitting Physician: Gabo Tinsley MD Referring Physician: Beto Alexander MD Vital Signs Most recent to 1 oldest [Reference Range]: Temperature Tympanic 36.7 degC [36.6-38.1 degC] (11/08/15 9:08 AM) Blood Pressure 128/80 mmHg [90-140/60-90 mmHg] (11/08/15 9:08 AM) Problem List Condition Effective Dates Status [...] Status Aleve1 Active 1causes abdominal pain Medications cetirizine 10 mg, Oral, Daily, 0 Refill(s) Start Date: 11/08/15 Status: Ordered ibuprofen 800 mg oral tablet 800 mg, Oral, q6hr, as needed for pain, # 90 tabs, 0 Refill(s), Pharmacy: [facility] #[id number], 800 mg Oral q6hr,PRN:as needed for pain Start Date: 07/20/14 Status: Ordered oxybutynin 5 mg oral tablet See Instructions, TAKE ONE TABLET BY MOUTH TWICE A DAY NEEDED FOR URINARY DISCOMFORT, # 60 tabs, eRx: [facility] #[id number], TAKE ONE TABLET BY MOUTH TWICE A DAY NEEDED FOR URINARY DISCOMFORT Start Date: 10/23/15 Status: Ordered PriLOSEC 40 mg oral delayed release capsule 40 mg 1 caps, Oral, Daily, # 30 caps, 3 Refill(s), Pharmacy: [facility] # [id number], 1 caps Oral Daily Start Date: 11/08/15 Status: Ordered Singulair 10 mg oral tablet 10 mg 1 tabs, Oral, qPM, # 30 tabs, 0 Refill(s), Pharmacy: [facility] # [id number], 1 tabs Oral qPM Start Date: 09/20/15 Status: Ordered Ventolin HFA 90 mcg/inh inhalation aerosol 1 puffs, Inhalation, q4hr, as needed for wheezing, # 8 g, 0 Refill(s), Pharmacy : [facility] #[id number], 1 puffs Inhalation q4hr,PRN:as needed for wheezing [...] - right L4-5, L5-S1 12/30/12 Colonoscopy with polypectomy1 2011 Procedure - right thumb nailbed matrix 2011 excision Full thickness skin graft from right index 01/02/11 and middle fingers Surgery - Volar V/Y advancement, right thumb 01/02/11 Tonsillectomy 05/09/09 Uvulopalatopharyngoplasty 05/09/09 Nasal septoplasty 11/2008 Reduction of nasal turbinate 11/2008 Nasal septoplasty 11/30/06 Colonoscopy2 06/26/05 Ablation of SVT 06/2003 Ablation - pulmonary 2002 Vasectomy 1985 Shoulder separation - left repair 1975 1hyperplastic polyp- recommendation to follow up in 10 years unless symptoms arise. 2Diverticulitis Social History Social History Type Response Smoking Status Former smoker Assessment and Plan No data available for this section
--- OUTSIDE RECORDS SUMMARY | 2016-08-24 09:23 | XMS REPORT | Referral Summary ---
Author Author [facility], [facility] Organization [facility] Address Unknown Phone Unavailable Care Team Providers Care Hogshead Filler Name Role Phone Nadia Alexander Primary Care Physician [phone] Encounter VC Date(s): 01/10/16 - 01/10/16 [facility] [address] [place] [address] Discharge Disposition: 01-Home or Self Care Attending Physician: Beto Alexander MD Admitting Physician: Beto Alexander MD Vital Signs Most recent to 1 oldest [Reference Range]: Blood Pressure 140/80 mmHg [90-140/60-90 mmHg] (01/10/16 10:30 AM) Problem List Condition Effective Dates Status [...] Hip pain(Confirmed) Active Elevated Active cholesterol(Confirme d) Elevated blood Active sugar(Confirmed) Hyperthyroidism(Conf Active irmed) Elevated blood Active sugar(Confirmed) [...] Active lumbosacral neuritis or radiculitis, unspecified(Confirme d) Tremor(Confirmed) Active Allergies, Adverse Reactions, Alerts Substance Reaction Severity Status Aleve1 Active 1causes abdominal pain Medications Astepro 205.5 mcg/inh (0.15%) nasal spray 1 sprays, Nasal, BID, as needed for allergy symptoms, # 30 mL, 12 Refill(s), Pharmacy: [facility] #[id number] Start Date: 11/09/15 Status: Ordered Dulera 100 mcg-5 mcg/inh inhalation aerosol 2 puffs, Inhalation, BID, # 13 g, 0 Refill(s) Start Date: 01/10/16 Status: Ordered fluticasone 50 mcg/inh nasal spray 2 sprays, Nasal, Daily, # 16 g, 12 Refill(s), Pharmacy: [facility] #[id number] Start Date: 11/09/15 Status: Ordered ibuprofen 800 mg oral tablet 800 mg, Oral, q6hr, as needed for pain, # 90 tabs, 0 Refill(s), Pharmacy: [facility] #[id number], 800 mg Oral q6hr,PRN:as needed for pain Start Date: 07/20/14 Status: Ordered oxybutynin 5 mg oral tablet 5 mg 1 tabs, Oral, BID, as needed for urinary discomfort, # 90 tabs, 1 Refill(s) , Pharmacy: [facility] #[id number], 1 tabs Oral BID,PRN:as needed for urinary discomfort Start Date: 01/10/16 Status: Ordered predniSONE 20 mg oral tablet 20 mg 1 tabs, Oral, Daily, X 5 days, # 5 tabs, 0 Refill(s), Pharmacy: [facility] #[id number], 1 tabs Oral Daily,x5 days Start Date: 01/10/16 Stop Date: 01/15/16 Status: Ordered propranolol 10 mg oral tablet 10 mg 1 tabs, Oral, BID, # 60 tabs, 0 Refill(s), Pharmacy: [facility] # [id number], 1 tabs Oral BID Start Date: 01/10/16 Status: Ordered Ventolin HFA 90 mcg/inh inhalation aerosol 1 puffs, Inhalation, q4hr, as needed for wheezing, # 8 g, 0 Refill(s), Pharmacy : [facility] #[id number], 1 puffs Inhalation q4hr,PRN:as needed for wheezing Start Date: 09/02/15 Status: Ordered Vitamin C 0 Refill(s) Start Date: 02/18/15 Status: Ordered vitamin E Oral, Daily, 0 Refill(s) Start Date: 02/18/15 Status: Ordered Zithromax Z-Frank 250 mg oral tablet 250 mg 1 tabs, Oral, Daily, # 6 tabs, 0 Refill(s), Pharmacy: [facility] # [id number], 1 tabs Oral Daily Start Date: 01/10/16 Status: Ordered Results Chemistry Most recent to 1 oldest [Reference Range]: TSH with Reflex Free 1.87 T4 [0.35-4.94] (01/10/16 11:18 AM) Immunizations Vaccine Date Refusal Reason influenza virus vaccine, inactivated 02/14/14 influenza virus vaccine, live 03/02/10 zoster vaccine live 09/20/15 Procedures Procedure Date Related Diagnosis Body Site Collection of venous blood by venipuncture 01/10/16 Transforaminal approach - Right L2-3, L3-4 01/14/13 Transforaminal approach - right L4-5, L5-S1 12/30/12 Colonoscopy with polypectomy1 2011 Procedure - right thumb nailbed matrix 2012 excision Full thickness skin graft from right index 01/02/11 and middle fingers Surgery - Volar V/Y advancement, right thumb 01/02/11 Tonsillectomy 05/09/09 Uvulopalatopharyngoplasty 05/09/09 Nasal septoplasty 11/2008 Reduction of nasal turbinate 11/2008 Nasal septoplasty 11/30/06 Colonoscopy2 06/26/05 Ablation of SVT 06/2003 Ablation - pulmonary 2002 Vasectomy 1986 Shoulder separation - left repair 1975 1hyperplastic polyp- recommendation to follow up in 10 years unless symptoms arise. 2Diverticulitis Social History Social History Type Response Smoking Status Former smoker Assessment and Plan Extracted from: Title: Ambulatory Patient Education Author: Beto Alexander MD Date: 03/17 Family Medicine Cholesterol Cholesterol is a white, waxy, fat-like substance needed by your body in small amounts. The liver makes all the cholesterol you need. Cholesterol is carried from the liver by the blood through the blood vessels. Deposits of cholesterol ( plaque) may build up on blood vessel fischer. These make the arteries narrower and stiffer. Cholesterol plaques increase the risk for heart attack and stroke. You cannot feel your cholesterol level even if it is very high. The only way to know it is high is with a blood test. Once you know your cholesterol levels, you should keep a record of the test results. Work with your health care provider to keep your levels in the desired range. WHAT DO THE RESULTS MEAN? Total cholesterol is a rough measure of all the cholesterol in your blood. LDL is the so-called bad cholesterol. This is the type that deposits cholesterol in the fischer of the arteries. You want this level to be low. HDL is the good cholesterol because it cleans the arteries and carries the LDL away. You want this level to be high. Triglycerides are fat that the body can either burn for energy or store. High levels are closely linked to heart disease. WHAT ARE THE DESIRED LEVELS OF CHOLESTEROL? Total cholesterol below 200. LDL below 100 for people at risk, below 70 for those at very high risk. HDL above 50 is good, above 60 is best. Triglycerides below 150. HOW CAN I LOWER MY CHOLESTEROL? Diet. Follow your diet programs as directed by your health care provider. Choose fish or white meat chicken and turkey, roasted or baked. Limit fatty cuts of red meat, fried foods, and processed meats, such as sausage and lunch meats. Eat lots of fresh fruits and vegetables. Choose whole grains, beans, pasta, potatoes, and cereals. Use only small amounts of olive, corn, or canola oils. Avoid butter, mayonnaise, shortening, or palm kernel oils. Avoid foods with trans fats. Drink skim or nonfat milk and eat low-fat or nonfat yogurt and cheeses. Avoid whole milk, cream, ice cream, egg yolks, and full-fat cheeses. Healthy desserts include ruben food cake, teresita snaps, animal crackers, hard candy, popsicles, and low-fat or nonfat frozen yogurt. Avoid pastries, cakes, pies, and cookies. Exercise. Follow your exercise programs as directed by your health care provider. A regular program helps decrease LDL and raise HDL. A regular program helps with weight control. Do things that increase your activity level like gardening, walking, or taking the stairs. Ask your health care provider about how you can be more active in your daily life. Medicine. Take medicine only as directed by your health care provider. Medicine may be prescribed by your health care provider to help lower cholesterol and decrease the risk for heart disease. If you have several risk factors, you may need medicine even if your levels are normal. This information is not intended to replace advice given to you by your health care provider. Make sure you discuss any questions you have with your health care provider. Document Released: 02/11/2002 Document Revised: 06/09/2015 Document Reviewed: [facility] Patient Information 2016 [employer]. No follow up information was provided. Extracted from: Title: Office Visit Note Author: Beto Alexander MD Date: 01/10/16 Assessment/Plan Acute URI Zpack and prednisone 20mg po daily for five days was given. Has an inhaler. Chronic generalized pain This issue was reviewed, appears stable, and current therapy continued except as mentioned. Appropriate lab was reviewed from the most recent appropriate entry and lab was ordered if needed in the cpoe/nursing orders, and follow up recommended generally in 90 days and no later then six months. Elevated blood sugar This issue was reviewed, appears stable, and current therapy continued except as mentioned. Appropriate lab was reviewed from the most recent appropriate entry and lab was ordered if needed in the cpoe/nursing orders, and follow up recommended generally in 90 days and no later then six months. Lab stable. Elevated cholesterol This issue was reviewed, appears stable, and current therapy continued except as mentioned. Appropriate lab was reviewed from the most recent appropriate entry and lab was ordered if needed in the cpoe/nursing orders, and follow up recommended generally in 90 days and no later then six months. Lab stable. GERD without esophagitis This issue was reviewed, appears stable, and current therapy continued except as mentioned. Appropriate lab was reviewed from the most recent appropriate entry and lab was ordered if needed in the cpoe/nursing orders, and follow up recommended generally in 90 days and no later then six months. Refill meds. Graves disease The patient's issue is nearly or completely resolved. There is no further issues or testing desired by them at this time. Lab pending. OAB (overactive bladder) This issue was reviewed, appears stable, and current therapy continued except as mentioned. Appropriate lab was reviewed from the most recent appropriate entry and lab was ordered if needed in the cpoe/nursing orders, and follow up recommended generally in 90 days and no later then six months. Refillditropan. Tremor Lab pending. Trial of propranolol 10mg po bid for 30 days and call report. The patient was offered and/or directed to a specialist for this issue. The patient refused or at least deferred any referral at this time. To Neurology if not improving. Ordered: TSH with Reflex Free T4 Orders: azithromycin, 250 mg 1 tabs, Oral, Daily, # 6 tabs, 0 Refill(s), Pharmacy: [facility] #[id number], 1 tabs Oral Daily oxybutynin, 5 mg 1 tabs, Oral, BID, as needed for urinary discomfort, # 90 tabs, 1 Refill(s), Pharmacy: [facility] #[id number], 1 tabs Oral BID,PRN:as needed for urinary discomfort predniSONE, 20 mg 1 tabs, Oral, Daily, X 5 days, # 5 tabs, 0 Refill(s), [facility][id number], 1 tabs Oral Daily,x5 days propranolol, 10 mg 1 tabs, Oral, BID, # 60 tabs, 0 Refill(s), [facility][id number], 1 tabs Oral BID
--- OUTSIDE RECORDS SUMMARY | 2016-08-24 09:23 | XMS REPORT | Referral Summary ---
Author Author [facility] Organization [facility] Address Unknown Phone Unavailable Care Team Providers Care Soft Sugar Supervisor Name Role Phone Nadia Alexander Primary Care Physician [phone] Encounter VC Date(s): 09/05/15 - 09/05/15 [facility] [address] [place] [id number]- Discharge Disposition: 01-Home or Self Care Attending Physician: Beto Alexander MD Admitting Physician: Beto Alexander MD Vital Signs Most recent to 1 oldest [Reference Range]: Blood Pressure 130/70 mmHg [90-140/60-90 mmHg] (09/05/15 10:56 AM) Problem List Condition Effective Dates Status Health Status Informant Allergic Active rhinitis/hayfever(Co nfirmed) Arthralgia of the Active pelvic region and thigh (finding)(Confirmed) Arthritis(Confirmed) Active Atrial Active fibrillation(Confirm ed) Cervical spondylosis Active - C4-6(Confirmed) Congenital [...] pain, # 90 tabs, 0 Refill(s), Pharmacy: [facility] #[id number], 800 mg Oral q6hr,PRN:as needed for pain Start Date: 07/20/14 Status: Ordered Shoshone 5 mg-325 mg oral tablet 1-2 tabs, Oral, q8hr, N. [place] Must last 30 days NEEDS APPT PRIOR TO ADDITIONAL REFILLS, # 90 tabs, 0 Refill(s) Start Date: 10/18/14 Status: Ordered predniSONE 20 mg oral tablet 20 mg 1 tabs, Oral, Daily, X 10 days, # 10 tabs, 0 Refill(s), Pharmacy: [facility] #[id number], 1 tabs Oral Daily,x10 days Start Date: 09/05/15 Stop Date: 09/15/15 Status: Ordered PriLOSEC 40 mg oral delayed release capsule 40 mg 1 caps, Oral, Daily, before a meal, # 30 caps, 0 Refill(s), Pharmacy: [facility] #[id number], 1 caps Oral Daily,Instr:before a meal Start Date: 12/22/14 Status: Ordered Ventolin HFA 90 mcg/inh inhalation aerosol 1 puffs, Inhalation, q4hr, as needed for wheezing, # 8 g, 0 Refill(s), Pharmacy : [facility] #[id number], 1 puffs Inhalation q4hr,PRN:as needed for wheezing Start Date: 09/02/15 Status: Ordered Vitamin C 0 Refill(s) Start Date: 02/18/15 Status: Ordered vitamin E Oral, Daily, 0 Refill(s) Start Date: 02/18/15 Status: Ordered Zithromax Z-Frank 250 mg oral tablet 1 packets, Oral, Daily, as directed on package labeling, X 5 days, # 6 tabs, 0 Refill(s), Pharmacy: [facility] #[id number], 1 packets Oral Daily,x5 days, Instr:as directed on package labeling Start Date: 09/02/15 Stop Date: 09/07/15 Status: Ordered Results No data available for [...] Patient Education Author: Beto Alexander MD Date: 09/05/15 Allergy Cough, Adult A cough is a reflex that helps clear your throat and airways. It can help heal the body or may be a reaction to an irritated airway. A cough may only last 2 or 3 weeks (acute) or may last more than 8 weeks (chronic). CAUSES Acute cough: Viral or bacterial infections. Chronic cough: Infections. Allergies. Asthma. Post-nasal drip. Smoking. Heartburn or acid reflux. Some medicines. Chronic lung problems (COPD). Cancer. SYMPTOMS Cough. Fever. Chest pain. Increased breathing rate. High-pitched whistling sound when breathing (wheezing). Colored mucus that you cough up (sputum). TREATMENT A bacterial cough may be treated with antibiotic medicine. A viral cough must run its course and will not respond to antibiotics. Your caregiver may recommend other treatments if you have a chronic cough. HOME CARE INSTRUCTIONS Only take lycz-nre-mrddhgm or prescription medicines for pain, discomfort , or fever as directed by your caregiver. Use cough suppressants only as directed by your caregiver. Use a cold steam vaporizer or humidifier in your bedroom or home to help loosen secretions. Sleep in a semi-upright position if your cough is worse at night. Rest as needed. Stop smoking if you smoke. SEEK IMMEDIATE MEDICAL CARE IF: You have pus in your sputum. Your cough starts to worsen. You cannot control your cough with suppressants and are losing sleep. You begin coughing up blood. You have difficulty breathing. You develop pain which is getting worse or is uncontrolled with medicine. You have a fever. MAKE SURE YOU: Understand these instructions. Will watch your condition. Will get help right away if you are not doing well or get worse. This information is not intended to replace advice given to you by your health care provider. Make sure you discuss any questions you have with your health care provider. Document Released: 11/15/2011 Document Revised: 08/10/2012 Document Reviewed: [facility] Patient Information [address] [facility]. [facility] Cholesterol Cholesterol is a white, waxy, fat-like [...] care provider. Document Released: 02/11/2002 Document Revised: 10/03/2014 Document Reviewed: [facility] Patient Information 2015 [employer] [facility]. No follow up information was provided. Extracted from: Title: Office Visit Note Author: Beto Alexander MD Date: 09/05/15 Assessment/Plan Cough Consider asthma. To Dr. Dagoberto Gillis for evaluation. CXR pending. PFTs with Dr. Gillisif warranted. A work/school note was offered and deferred by the patient. Zpack and prednisone 20mg po daily for ten days was given. He also already has a ventolin inhaler from Dr. TOLEDO. The patient has family members present who are agreeable with today's plan and have no additional concerns or requests. Jojo here. Ordered: XR Chest 2 Views Elevated blood sugar This issue was reviewed, appears stable, and current therapy continued except as mentioned. Appropriate lab was reviewed from the most recent appropriate entry and lab was ordered if needed in the cpoe/nursing orders, and follow up recommended generally in 90 days and no later then six months. Lab due. Elevated cholesterol This issue was reviewed, appears stable, and current therapy continued except as mentioned. Appropriate lab was reviewed from the most recent appropriate entry and lab was ordered if needed in the cpoe/nursing orders, and follow up recommended generally in 90 days and no later then six months. Labdue. GERD without esophagitis This issue was reviewed, appears stable, and current therapy continued except as mentioned. Appropriate lab was reviewed from the most recent appropriate entry and lab was ordered if needed in the cpoe/nursing orders, and follow up recommended generally in 90 days and no later then six months. Stable on meds. Hearing loss This issue was reviewed, appears stable, and current therapy continued except as mentioned. Appropriate lab was reviewed from the most recent appropriate entry and lab was ordered if needed in the cpoe/nursing orders, and follow up recommended generally in 90 days and no later then six months. Neck pain This issue was reviewed, appears stable, and current therapy continued except as mentioned. Appropriate lab was reviewed from the most recent appropriate entry and lab was ordered if needed in the cpoe/nursing orders, and follow up recommended generally in 90 days and no later then six months. Orders: predniSONE, 20 mg 1 tabs, Oral, Daily, X 10 days, # 10 tabs, 0 Refill( s), Pharmacy: [facility] #[id number], 1 tabs Oral Daily,x10 days Internal Referral to Allergy
--- OUTSIDE RECORDS SUMMARY | 2016-08-24 09:23 | XMS REPORT | Referral Summary ---
Author Organization Unknown Address Unknown Phone Unavailable Care Team Providers Care Chip Crusher Operator Name Role Phone Nadia Alexander Primary Care Physician [phone] Encounter [facility] Date(s): 06/14/14 - 06/14/14 [facility], [address] [place] [address]- Discharge Diagnosis: Cramp, abdominal Discharge Diagnosis: Elevated cholesterol Discharge Diagnosis: Low back pain (finding) Discharge Diagnosis: Osteoarthritis Discharge Diagnosis: IBS (irritable bowel syndrome) Discharge Disposition: Home or Self Care Attending Physician: Beto Alexander MD Admitting Physician: Beto Alexander MD Vital Signs Most recent to 1 oldest [Reference Range]: Blood Pressure 120/70 mmHg [90-140/60-90 mmHg] (06/14/14 11:33 AM) Problem List Condition Effective Dates Status [...] a d spur complexes(Confirmed) Diverticulitis(Confi Active rmed) Foreign body (FB) in Active soft tissue, residual(Confirmed) Chronic generalized Active pain(Confirmed) Graves 2006 Active disease(Confirmed) Headache(Confirmed) Active Hearing Active loss(Confirmed) Hip pain(Confirmed) Active Hyperthyroidism(Conf Active irmed) Irregular heart Active rhythm(Confirmed) IBS (irritable bowel Active syndrome)(Confirmed) Lateral Active epicondylitis - right(Confirmed) Low back [...] spine - Active cervical and lateral recess(Confirmed) Thoracic or Active lumbosacral neuritis or radiculitis, unspecified(Confirme d) Allergies, Adverse Reactions, Alerts No data available for this section Medications ibuprofen 800 mg, Oral, q6hr, as needed for pain, 0 Refill(s) Start Date: 11/04/13 Status: Ordered Linzess 145 mcg oral capsule 1 caps, Oral, Daily, # 30 caps, 0 Refill(s), Pharmacy: [facility] #[id number] , 1 caps Oral Daily Start Date: 06/14/14 Status: Ordered [place] 5 mg-325 mg oral tablet 1-2 tabs, Oral, q8hr, N. [place] Must last 30 days, # 90 tabs, 0 Refill(s) Special Instructions: N. [place]ill[place] Must last 30 days Start Date: 05/17/14 Status: Ordered Results Hematology Most recent to 1 oldest [Reference Range]: WBC [4.8-10.8 K/uL] 7.6 K/uL (06/14/14 12:00 PM) RBC [4.60-6.20 M/uL] 4.98 M/uL (06/14/14 12:00 PM) Hgb [14.0-18.0 15.9 gm/dL gm/dL] (06/14/14 12:00 PM) Hct [42.0-52.0 %] 43.9 % (06/14/14 12:00 PM) MCV [82.0-99.0 fL] 88.2 fL (06/14/14 12:00 PM) MCH [27.0-32.0 pg] 31.9 pg (06/14/14 12:00 PM) MCHC [32.0-36.0 36.2 gm/dL gm/dL] *HI* (06/14/14 12:00 PM) RDW [11.5-14.5 %] 12.8 % (06/14/14 12:00 PM) Platelet [150-400 286 K/uL K/uL] (06/14/14 12:00 PM) MPV [8.8-14.8 fL] 10.5 fL (06/14/14 12:00 PM) Immature 0.1 % Granulocytes (06/14/14:00 PM) [0.0-1.0 %] Neutrophils [51-75 50 % %] *LOW* (06/14/1400 PM) Lymphocytes [20-46 35 % %] (06/14/14 12:00 PM) Monocytes [4-11 %] 10 % (06/14/14:00 PM) Eosinophils [0-4 %] 4 % (06/14/14:00 PM) Basophils [0-2 %] 1 % (06/14/1400 PM) Neutro Absolute 3.76 THOUS [1.90-7.00 THOUS] (06/14/14:00 PM) Lymph Absolute 2.64 THOUS [0.80-3.30 THOUS] (06/14/14:00 PM) [place] Absolute 0.77 THOUS [0.30-1.00 THOUS] (06/14/14:00 PM) Eos Absolute 0.32 THOUS [0.00-0.50 THOUS] (06/14/14:00 PM) Baso Absolute 0.05 THOUS [0.00-0.20 THOUS] (06/14/14 12:00 PM) Chemistry Most recent to 1 oldest [Reference Range]: Sodium Lvl [135-144 142 mEq/L mEq/L] (06/14/14:00 PM) Potassium Lvl 4.7 mEq/L [3.5-5.2 mEq/L] (06/14/14:00 PM) Chloride [99-111 106 mEq/L mEq/L] (06/14/14:00 PM) CO2 [23-31 mEq/L] 26 mEq/L (06/14/14 12:00 PM) AGAP [3-20] 10 (06/14/14 12:00 PM) BUN [8-26 mg/dL] 19 mg/dL (06/14/14 12:00 PM) Glucose Lvl [70-99 107 mg/dL mg/dL] *HI* (06/14/14 12:00 PM) Creatinine Lvl 0.84 mg/dL [0.72-1.25 mg/dL] (06/14/14 12:00 PM) eGFR [>60 mL/min] >60 mL/min 1 (06/14/14 12:00 PM) Calcium Lvl 10.2 mg/dL [8.9-10.5 mg/dL] (06/14/14 12:00 PM) Albumin Lvl [3.5-5.0 4.5 gm/dL gm/dL] (06/14/14 12:00 PM) Total Protein 6.9 gm/dL [6.4-8.3 gm/dL] (06/14/14 12:00 PM) Globulin [1.8-4.0 2.4 gm/dL gm/dL] (06/14/14 12:00 PM) ALT [0-55 unit/L] 52 unit/L (06/14/14 12:00 PM) AST [5-34 unit/L] 30 unit/L (06/14/14 12:00 PM) Alk Phos [40-150 72 unit/L unit/L] (06/14/14 12:00 PM) Bili Total [0.2-1.2 0.6 mg/dL mg/dL] (06/14/14 12:00 PM) Chol [0-199 mg/dL] 199 mg/dL (06/14/14 12:00 PM) Trig [0-149 mg/dL] 363 mg/dL *HI* (06/14/14 12:00 PM) HDL [40-84 mg/dL] 37 mg/dL *LOW* (06/14/14 12:00 PM) LDL [0-130 mg/dL] 89 mg/dL (06/14/14 12:00 PM) VLDL Cholesterol 73 mg/dL [0-28 mg/dL] *HI* (06/14/14 12:00 PM) Cardiac Risk 5.4 [0.0-5.7] (06/14/14 12:00 PM) 1Result Comment: Multiply eGFR results by 1.21 for race. Urinalysis Most recent to 1 oldest [Reference Range]: UA Color Yellow (06/14/14 12:00 PM) UA Appear Clear (06/14/14 12:00 PM) UA pH [5.0-8.0] 6.0 (06/14/14 12:00 PM) UA Leuk Est Negative [Negative] (06/14/14 12:00 PM) UA Nitrite Negative [Negative] (06/14/14 12:00 PM) UA Protein Negative [Negative] (06/14/14 12:00 PM) UA Glucose Negative [Negative] (06/14/14 12:00 PM) UA Ketones Negative [Negative] (06/14/14 12:00 PM) UA Urobilinogen 1.0 mg/dL [<1.0 mg/dL] (06/14/14 12:00 PM) UA Bili [Negative] Negative (06/14/14 12:00 PM) UA Blood [Negative] Negative (06/14/14 12:00 PM) UA Spec Grav 1.033 [1.003-1.030] *HI* (06/14/14 12:00 PM) Type Voided (06/14/14 12:00 PM) Immunizations Vaccine Date Refusal Reason influenza virus vaccine, inactivated 02/14/14 influenza virus vaccine, live 03/02/10 Procedures Procedure Date Related Diagnosis Body Site Collection of venous blood by venipuncture 06/14/14-MAY-2014 00:38:50<$> Transforaminal approach - Right L2-3, L3-4 01/14/13 [...] Author: Beto Alexander MD Date: Family Medicine Abdominal Pain Abdominal pain can be caused by many things. Your caregiver decides the seriousness of your pain by an examination and possibly blood tests and X-rays. Many cases can be observed and treated at home. Most abdominal pain is not caused by a disease and will probably improve without treatment. However, in many cases, more time must pass before a clear cause of the pain can be found. Before that point, it may not be known if you need more testing, or if hospitalization or surgery is needed. HOME CARE INSTRUCTIONS Do not take laxatives unless directed by your caregiver. Take pain medicine only as directed by your caregiver. Only take qurq-hob-kccyenv or prescription medicines for pain, discomfort, or fever as directed by your caregiver. Try a clear liquid diet (broth, tea, or water) for as long as directed by your caregiver. Slowly move to a bland diet as tolerated. SEEK IMMEDIATE MEDICAL CARE IF: The pain does not go away. You have a fever. You keep throwing up (vomiting ). The pain is felt only in portions of the abdomen. Pain in the right side could possibly be appendicitis. In an adult, pain in the left lower portion of the abdomen could be colitis or diverticulitis. You pass bloody or black tarry stools. MAKE SURE YOU: Understand these instructions. Will watch your condition. Will get help right away if you are not doing well or get worse. Document Released: 02/26/2006 Document Revised: 08/10/2012 Document Reviewed: [facility] Patient Information 2014 [employer]. No follow up information was provided. Extracted from: Title: Office Visit Note Author: Beto Alexander MD Date: 06/14/14 Assessment/Plan Cramp, abdominal Lab is pending. Consider GI consult. See below. Ordered: CBC w/ Differential Comprehensive Metabolic Panel Urinalysis with Culture if Indicated Elevated cholesterol This issue is stable and appropriate refills, lab, and f/ u have been discussed. Ordered: Lipid Panel IBS (irritable bowel syndrome) Trial of Linzess 145mg po daily, side effects discussed. Samples and voucher given. Call report in 3-4 weeks or sooner prn. Work note offered and deferred. Low back pain (finding) This issue is stable and appropriate refills, lab, and f/u have been discussed. Osteoarthritis This issue is stable and appropriate refills, lab, and f/u have been discussed. Has norco and is stable. Orders: linaclotide, 1 caps, Oral, Daily, # 30 caps, 0 Refill(s), Pharmacy: [facility] #[id number], 1 caps Oral Daily
--- OUTSIDE RECORDS SUMMARY | 2016-08-24 09:23 | XMS REPORT | Referral Summary ---
Author Author [facility] Organization [facility] Address Unknown Phone Unavailable Care Team Providers Care Territory Sales Executive Name Role Phone JamarlilaNadia Primary Care Physician [phone] Encounter [facility] [id number] Date(s): 12/06/15 - 12/06/15 [facility] [address] [place] [address] [facility] Discharge Diagnosis: Cough Discharge Diagnosis: Allergic rhinitis due to pollen Discharge Diagnosis: Acute atopic conjunctivitis, bilateral Discharge Diagnosis: Non-allergic rhinitis Discharge Diagnosis: Allergic conjunctivitis Discharge Diagnosis: Allergic rhinitis Discharge Disposition: 01-Home or Self Care Attending Physician: Roland Gillis MD Admitting Physician: Roland Gillis MD Referring Physician: Roland Gillis MD Vital Signs Most recent to 1 oldest [Reference Range]: Blood Pressure 142/84 mmHg [90-140/60-90 mmHg] *HI* (12/06/15 11:23 AM) Problem List Condition Effective Dates Status [...] symptoms, # 30 mL, 12 Refill(s), Pharmacy: [facility] #[id number] Start Date: 11/09/15 Status: Ordered cetirizine 10 mg, Oral, Daily, 0 Refill(s) Start Date: 11/08/15 Status: Ordered fluticasone 50 mcg/inh nasal spray 2 sprays, Nasal, Daily, # 16 g, 12 Refill(s), Pharmacy: [facility] #[id number] Start Date: 11/09/15 Status: Ordered ibuprofen 800 mg oral tablet 800 mg, Oral, q6hr, as needed for pain, # 90 tabs, 0 Refill(s), Pharmacy: [facility] #[id number], 800 mg Oral q6hr,PRN:as needed for pain Start Date: 07/20/14 Status: Ordered oxybutynin 5 mg oral tablet See Instructions, TAKE ONE TABLET BY MOUTH TWICE A DAY NEEDED FOR URINARY DISCOMFORT, # 60 tabs, eRx: [facility] #[id number], TAKE ONE TABLET BY MOUTH TWICE A DAY NEEDED FOR URINARY DISCOMFORT Start Date: 10/23/15 Status: Ordered PriLOSEC 40 mg oral delayed release capsule 40 mg 1 caps, Oral, Daily, # 30 caps, 3 Refill(s), Pharmacy: [facility] # [id number], 1 caps Oral Daily Start Date: 11/08/15 Status: Ordered Ventolin HFA 90 mcg/inh inhalation aerosol 1 puffs, Inhalation, q4hr, as needed for wheezing, # 8 g, 0 Refill(s), Pharmacy : [facility] #[id number], 1 puffs Inhalation q4hr,PRN:as needed for wheezing [...] Ablation of SVT 06/2003 Ablation - pulmonary 2001 Vasectomy 1985 Shoulder separation - left repair 1975 1hyperplastic polyp- recommendation to follow up in 10 years unless symptoms arise. 2Diverticulitis Social History Social History Type Response Smoking Status Former smoker Assessment and Plan Extracted from: Title: Office Visit Note Author: Roland Gillis MD Date: 12/06/15 Assessment/Plan 1.Allergic rhinitis, Allergic rhinitis due to pollen Controlled Ordered: Office Visit Level 3 Est 71467 Return to Clinic 2.Allergic conjunctivitis, Acute atopic conjunctivitis, bilateral Controlled Ordered: Office Visit Level 3 Est 29606 Return to Clinic 3.Non-allergic rhinitis Improved Ordered: Office Visit Level 3 Est 19246 Return to Clinic 4.Cough Abolished with treatment of nasal symptoms Ordered: Office Visit Level 3 Est 98689 Return to Clinic Recommendations: Anticipate more problems with becoming fall allergy seasondue to defined sensitivity to weed pollen. Try a sample of Dymista nasal spray one per nostril twice a day. If possible , the patientcan use a discount coupon to helpobtain thiscombination nasal spray. Schedule return visit in one year, sooner if necessary Referrals to Other Providers Referred by: Roland Gillis MD
--- OUTSIDE RECORDS SUMMARY | 2016-08-24 09:23 | XMS REPORT | Referral Summary ---
Author Author [facility] Organization [facility] Address Unknown Phone Unavailable Care Team Providers Care Ply Cutter Name Role Phone JamarlilaNadia Primary Care Physician [phone] Encounter [facility] [id number] Date(s): 11/09/15 - 11/09/15 [facility] [address] [place] [address] [facility] Discharge Diagnosis: Non-allergic rhinitis Discharge Diagnosis: Allergic conjunctivitis Discharge Diagnosis: Allergic rhinitis/hayfever Discharge Diagnosis: Cough Discharge Disposition: 01-Home or Self Care Attending Physician: Roland Gillis MD Admitting Physician: Roland Gillis MD Vital Signs Most recent to 1 oldest [Reference Range]: Blood Pressure 132/70 mmHg [90-140/60-90 mmHg] (11/09/15 9:45 AM) Problem List Condition Effective Dates Status [...] esophagitis(Confirme d) Chronic generalized Active pain(Confirmed) Graves 2005 Active [...] symptoms, # 30 mL, 12 Refill(s), Pharmacy: [facility] #[id number] Start Date: 11/09/15 Status: Ordered cetirizine 10 mg, Oral, Daily, 0 Refill(s) Start Date: 11/08/15 Status: Ordered fluticasone 50 mcg/inh nasal spray 2 sprays, Nasal, Daily, # 16 g, 12 Refill(s), Pharmacy: [facility] #[id number] Start Date: 11/09/15 Status: Ordered ibuprofen 800 mg oral tablet 800 mg, Oral, q6hr, as needed for pain, # 90 tabs, 0 Refill(s), Pharmacy: [facility] #[id number], 800 mg Oral q6hr,PRN:as needed for pain Start Date: 07/20/14 Status: Ordered oxybutynin 5 mg oral tablet See Instructions, TAKE ONE TABLET BY MOUTH TWICE A DAY NEEDED FOR URINARY DISCOMFORT, # 60 tabs, eRx: [facility] #[id number], TAKE ONE TABLET BY MOUTH TWICE A DAY NEEDED FOR URINARY DISCOMFORT Start Date: 10/23/15 Status: Ordered PriLOSEC 40 mg oral delayed release capsule 40 mg 1 caps, Oral, Daily, # 30 caps, 3 Refill(s), Pharmacy: [facility] # [id number], 1 caps Oral Daily Start Date: 11/08/15 Status: Ordered Singulair 10 mg oral tablet 10 mg 1 tabs, Oral, qPM, # 30 tabs, 0 Refill(s), Pharmacy: [facility] # [id number], 1 tabs Oral qPM Start Date: 09/20/15 Status: Ordered Ventolin HFA 90 mcg/inh inhalation aerosol 1 puffs, Inhalation, q4hr, as needed for wheezing, # 8 g, 0 Refill(s), Pharmacy : [facility] #[id number], 1 puffs Inhalation q4hr,PRN:as needed for wheezing Start Date: 09/02/15 Status: Ordered Vitamin C 0 Refill(s) Start Date: 02/18/15 Status: Ordered vitamin E Oral, Daily, 0 Refill(s) Start Date: 02/18/15 Status: Ordered Results Chemistry Most recent to 1 oldest [Reference Range]: IgE (Immunoglobulin <20 Intl Units/mL E) [0-100 Intl (11/09/15 12:03 PM) Units/mL] Immunizations Vaccine Date Refusal Reason influenza virus vaccine, inactivated 02/14/14 influenza virus vaccine, live 03/02/10 zoster vaccine live 09/20/15 Procedures Procedure Date Related Diagnosis Body Site Collection of venous blood by venipuncture 11/09/15 Transforaminal approach - Right L2-3, L3-4 01/14/13 [...] Extracted from: Title: Ambulatory Patient Education Author: Roland Gillis MD Date: Allergy Allergic Rhinitis Allergic rhinitis is when the mucous membranes in the nose respond to allergens. Allergens are particles in the air that cause your body to have an allergic reaction. This causes you to release allergic antibodies. Through a chain of events, these eventually cause you to release histamine into the blood stream. Although meant to protect the body, it is this release of histamine that causes your discomfort, such as frequent sneezing, congestion, and an itchy , runny nose. CAUSES Seasonal allergic rhinitis (hay fever) is caused by pollen allergens that may come from grasses, trees, and weeds. Year-round allergic rhinitis (perennial allergic rhinitis) is caused by allergens such as house dust mites, pet dander, and mold spores. SYMPTOMS Nasal stuffiness (congestion). Itchy, runny nose with sneezing and tearing of the eyes. DIAGNOSIS Your health care provider can help you determine the allergen or allergens that trigger your symptoms. If you and your health care provider are unable to determine the allergen, skin or blood testing may be used. Your health care provider will diagnose your condition after taking your health history and performing a physical exam. Your health care provider may assess you for other related conditions, such as asthma, pink eye, or an ear infection. TREATMENT Allergic rhinitis does not have a cure, but it can be controlled by: Medicines that block allergy symptoms. These may include allergy shots, nasal sprays, and oral antihistamines. Avoiding the allergen. Hay fever may often be treated with antihistamines in pill or nasal spray forms. Antihistamines block the effects of histamine. There are over-the- counter medicines that may help with nasal congestion and swelling around the eyes. Check with your health care provider before taking or giving this medicine. If avoiding the allergen or the medicine prescribed do not work, there are many new medicines your health care provider can prescribe. Stronger medicine may be used if initial measures are ineffective. Desensitizing injections can be used if medicine and avoidance does not work. Desensitization is when a patient is given ongoing shots until the body becomes less sensitive to the allergen. Make sure you follow up with your health care provider if problems continue. HOME CARE INSTRUCTIONS It is not possible to completely avoid allergens, but you can reduce your symptoms by taking steps to limit your exposure to them. It helps to know exactly what you are allergic to so that you can avoid your specific triggers. SEEK MEDICAL CARE IF: You have a fever. You develop a cough that does not stop easily (persistent). You have shortness of breath. You start wheezing. Symptoms interfere with normal daily activities. This information is not intended to replace advice given to you by your health care provider. Make sure you discuss any questions you have with your health care provider. Document Released: 02/11/2002 Document Revised: 06/09/2015 Document Reviewed: [employer] Patient Information 2016 [employer], [facility]. No follow up information was provided.
--- OUTSIDE RECORDS SUMMARY | 2016-08-24 09:23 | XMS REPORT | Referral Summary ---
Author Author [facility] Organization [facility] Address Unknown Phone Unavailable Care Team Providers Care Road Equipment Operator Name Role Phone Fanirichard Nadia Primary Care Physician [phone] Encounter Date(s): 12/08/14 - 12/08/14 [facility] [address] [place], [place] [address] Discharge Diagnosis: Tendinitis of elbow Discharge Diagnosis: Elbow pain Discharge Diagnosis: Synovitis of knee Discharge Disposition: 01-Home or Self Care Attending Physician: Gabo Gardiner MD Admitting Physician: Gabo Gardiner MD Vital Signs No data available for this section Problem List Condition Effective Dates Status Health [...] pain, # 90 tabs, 0 Refill(s), Pharmacy: [facility] #[id number], 800 mg Oral q6hr,PRN:as needed for pain Start Date: 07/20/14 Status: Ordered [place] 5 mg-325 mg oral tablet 1-2 tabs, Oral, q8hr, N. Dillons Must last 30 days NEEDS APPT PRIOR TO ADDITIONAL REFILLS, # 90 tabs, 0 Refill(s) Start Date: 10/18/14 Status: Ordered PriLOSEC 40 mg oral delayed release capsule 40 mg 1 caps, Oral, Daily, before a meal, # 30 caps, 0 Refill(s), Pharmacy: [facility] #[id number], 1 caps Oral Daily,Instr:before a meal Start Date: 12/22/14 Status: Ordered Vitamin C 0 Refill(s) Start Date: 02/18/15 Status: Ordered vitamin E Oral, Daily, 0 Refill(s) Start Date: 02/18/15 Status: Ordered Results No data available for this section Immunizations Vaccine Date Refusal Reason influenza virus vaccine, inactivated 02/14/14 influenza virus vaccine, live 03/02/10 Procedures Procedure Date Related Diagnosis Body Site Arthrocentesis, aspiration and/or injection, 12/08/14 major joint or bursa (eg, shoulder, hip, knee, subacromial bursa); without ultrasound guidance Transforaminal approach - Right L2-3, L3-4 01/14/13 [...] Extracted from: Title: Office Visit Note Author: Gabo Gardiner MD Date: 12/08/14 Assessment/Plan Elbow pain I think he has some early tendinitis of both elbows recommend we try a tennis elbow strap. Ordered: triamcinolone, 2 mL, IntraARTICULAR , Once, First Dose: 12/08/14 14:00:00 CDT, Stop Date: 12/08/14 14:00:00 CDT, [facility] 3677-6446-26 Arthro/Asp Major Joint Inj (Shoulder, Hip, Knee) 77118 Non-elastic binder for extremity A4465 Office Visit Level 3 Est 54052 Synovitis of knee, Tendinitis of elbow He has some synovitis to his knees and a recommend we try an injection the right knee and see how he does over time. Procedure note: Right knee was sterilely prepped with Betadine. I injected the right knee with 80 mg Kenalog and 8 mL one percent lidocaine. Ordered: triamcinolone, 2 mL, IntraARTICULAR , Once, First Dose: 12/08/14 14:00:00 CDT, Stop Date: 12/08/14 14:00:00 CDT, [facility] 4342-4931-85 Arthro/Asp Major Joint Inj (Shoulder, Hip, Knee) 94885 Office Visit Level 3 Est 51795
--- OUTSIDE RECORDS SUMMARY | 2016-08-24 09:23 | XMS REPORT | Referral Summary ---
Author Author [facility] Organization [facility] Address Unknown Phone Unavailable Care Team Providers Care Chemical Process Engineer Name Role Phone Nadia Alexander Primary Care Physician [phone] Encounter Date(s): 06/17/16 - 06/17/16 [facility] [address] [place] [id number] Discharge Diagnosis: Cough Discharge Diagnosis: Acute bronchitis Discharge Disposition: 01-Home or Self Care Attending Physician: Shanice Russo PA-C Admitting Physician: Shanice Russo PA-C Vital Signs Most recent to 1 oldest [Reference Range]: Peripheral Pulse 81 bpm Rate [60-100 bpm] (06/17/16 1:22 PM) Respiratory Rate 16 br/min [14-20 br/min] (06/17/16 1:22 PM) Blood Pressure 138/72 mmHg [90-140/60-90 mmHg] (06/17/16 1:22 PM) SpO2 96 % (06/17/16 1:22 PM) Problem List Condition Effective Dates Status Health [...] symptoms, # 30 mL, 12 Refill(s), Pharmacy: [facility] #[id number] Start Date: 11/09/15 Status: Ordered Dulera 100 mcg-5 mcg/inh inhalation aerosol 2 puffs, Inhalation, BID, # 13 g, 0 Refill(s) Start Date: 01/10/16 Status: Ordered fluticasone 50 mcg/inh nasal spray 2 sprays, Nasal, Daily, # 16 g, 12 Refill(s), Pharmacy: [facility] #[id number] Start Date: 11/09/15 Status: Ordered ibuprofen 800 mg oral tablet 800 mg, Oral, q6hr, as needed for pain, # 90 tabs, 0 Refill(s), Pharmacy: [facility] #[id number], 800 mg Oral q6hr,PRN:as needed for pain Start Date: 07/20/14 Status: Ordered oxybutynin 5 mg oral tablet 5 mg 1 tabs, Oral, BID, as needed for urinary discomfort, # 90 tabs, 1 Refill(s) , Pharmacy: [facility] #[id number], 1 tabs Oral BID,PRN:as needed for urinary discomfort Start Date: 01/10/16 Status: Ordered propranolol 10 mg oral tablet 10 mg 1 tabs, Oral, BID, # 60 tabs, 0 Refill(s), Pharmacy: [facility] # [id number], 1 tabs Oral BID Start Date: 01/10/16 Status: Ordered Tessalon 200 mg oral capsule 200 mg 1 caps, Oral, TID, X 10 days, # 30 caps, 0 Refill(s), Pharmacy: [facility] #[id number], 1 caps Oral TID,x10 days Start Date: 06/17/16 Stop Date: 06/27/16 Status: Ordered Ventolin HFA 90 mcg/inh inhalation aerosol 1 puffs, Inhalation, q4hr, as needed for wheezing, # 8 g, 0 Refill(s), Pharmacy : [facility] #[id number], 1 puffs Inhalation q4hr,PRN:as needed for wheezing Start Date: 09/02/15 Status: Ordered Vitamin C 0 Refill(s) Start Date: 02/18/15 Status: Ordered vitamin E Oral, Daily, 0 Refill(s) Start Date: 02/18/15 Status: Ordered Results No data available for this section Immunizations Given and Recorded Vaccine Date Status Refusal Reason influenza virus vaccine, inactivated 02/14/14 Recorded influenza virus vaccine, live 03/02/10 Given zoster vaccine live 09/20/15 Given Procedures Procedure Date Related Diagnosis Body Site Transforaminal approach - Right L2-3, L3-4 01/14/13 Transforaminal approach - right L4-5, L5-S1 12/30/12 Colonoscopy 05/11/12 Colonoscopy with polypectomy1 2011 Procedure - right thumb nailbed matrix 2011 excision Full thickness skin graft from right index 01/02/11 and middle fingers Surgery - Volar V/Y advancement, right thumb 01/02/11 Tonsillectomy 05/09/09 Uvulopalatopharyngoplasty 05/09/09 Nasal septoplasty 11/2008 Reduction of nasal turbinate 11/2008 Nasal septoplasty 7/1/07 Colonoscopy2 06/26/05 Ablation of SVT 06/2003 Ablation - pulmonary 2002 Vasectomy 1985 Shoulder separation - left repair 1975 1hyperplastic polyp- recommendation to follow up in 10 years unless symptoms arise. 2Diverticulitis Social History Social History Type Response Smoking Status Former smoker Assessment and Plan Extracted from: Title: Office Visit Note- URI Author: Shanice Russo PA-C Date: 06/17 Assessment/Plan Acute bronchitis D/w pt that this appears viral at this time. Starting abx now does NOT prevent infection. Advised pt to continue with Dulera and increase the Albuterol to 2-3 times per day routinely for the next few days. Pt is to rest and push fluids. D/w pt that he may not feel well for the next week, but the cough can continue up to 2-4 weeks. He is to call or RTC if worsening. Ordered: benzonatate, 200 mg 1 caps, Oral, TID, X 10 days, # 30 caps, 0 Refill(s), Pharmacy: [facility] #[id number], 1 caps Oral TID,x10 days Office Visit Level 3 Est 57000 Cough Pt would like something to help with cough. Will try Tessalonperles at this time. Ordered: benzonatate, 200 mg 1 caps, Oral, TID, X 10 days, # 30 caps, 0 Refill(s), Pharmacy: [facility] #[id number], 1 caps Oral TID,x10 days Office Visit Level 3 Est 29311
--- OUTSIDE RECORDS SUMMARY | 2016-08-24 09:23 | XMS REPORT | Referral Summary ---
Author Author [facility] Organization [facility] Address Unknown Phone Unavailable Care Team Providers Care Distribution Coordinator Name Role Phone Nadia Alexander Primary Care Physician [phone] Encounter [facility] Date(s): 05/07/16 - 05/07/16 [facility] [address] [place] [address] Discharge Diagnosis: Changing skin lesion Discharge Diagnosis: Actinic keratosis Discharge Disposition: 01-Home or Self Care Attending Physician: Shanice Russo PA-C Admitting Physician: Shanice Russo PA-C Vital Signs Most recent to 1 oldest [Reference Range]: Peripheral Pulse 65 bpm Rate [60-100 bpm] (05/07/16 3:51 PM) Respiratory Rate 18 br/min [14-20 br/min] (05/07/16 3:51 PM) Blood Pressure 112/72 mmHg [90-140/60-90 mmHg] (05/07/16 3:51 PM) Problem List Condition Effective Dates Status [...] symptoms, # 30 mL, 12 Refill(s), Pharmacy: [facility] #[id number] Start Date: 11/09/15 Status: Ordered Dulera 100 mcg-5 mcg/inh inhalation aerosol 2 puffs, Inhalation, BID, # 13 g, 0 Refill(s) Start Date: 01/10/16 Status: Ordered fluticasone 50 mcg/inh nasal spray 2 sprays, Nasal, Daily, # 16 g, 12 Refill(s), Pharmacy: [facility] #[id number] Start Date: 11/09/15 Status: Ordered ibuprofen 800 mg oral tablet 800 mg, Oral, q6hr, as needed for pain, # 90 tabs, 0 Refill(s), Pharmacy: [facility] #[id number], 800 mg Oral q6hr,PRN:as needed for pain Start Date: 07/20/14 Status: Ordered oxybutynin 5 mg oral tablet 5 mg 1 tabs, Oral, BID, as needed for urinary discomfort, # 90 tabs, 1 Refill(s) , Pharmacy: [facility] #[id number], 1 tabs Oral BID,PRN:as needed for urinary discomfort Start Date: 01/10/16 Status: Ordered propranolol 10 mg oral tablet 10 mg 1 tabs, Oral, BID, # 60 tabs, 0 Refill(s), Pharmacy: [facility] # [id number], 1 tabs Oral BID Start Date: 01/10/16 Status: Ordered Ventolin HFA 90 mcg/inh inhalation aerosol 1 puffs, Inhalation, q4hr, as needed for wheezing, # 8 g, 0 Refill(s), Pharmacy : [facility] #[id number], 1 puffs Inhalation q4hr,PRN:as needed for wheezing Start Date: 09/02/15 Status: Ordered Vitamin C 0 Refill(s) Start Date: 02/18/15 Status: Ordered vitamin E Oral, Daily, 0 Refill(s) Start Date: 02/18/15 Status: Ordered Zithromax Z-Frank 250 mg oral tablet 250 mg 1 tabs, Oral, Daily, # 6 tabs, 0 Refill(s), Pharmacy: [facility] # [id number], 1 tabs Oral Daily Start Date: 01/10/16 Status: Ordered Results No data available for [...] Plan Extracted from: Title: Office Visit Note- AK, skin Author: Shanice Russo PA-C Date : 05/07/16 lesion Assessment/Plan Actinic keratosis The lesion to the center upper chest was frozen with liquid nitrogen using afreeze/thaw cycle x 3. Pt tolerated well.Advised that it should blister and fall off.If there is a lesion still present, he is to schedule an appt in the procedureroom for lesion excision. Ordered: Office Visit Level 3 Est 98110 Changing skin lesion See above. The lesion to the R chest appears benign. Monitor it for now. Ordered: Office Visit Level 3 Est 71616
--- OUTSIDE RECORDS SUMMARY | 2016-08-24 09:24 | XMS REPORT | Continuity of Care Document ---
Author Author Benjamin PARNELL, Beto VELIZ W Organization [facility] Address [address] [place] [address] Dr [place] [address] Phone Care Team Providers Care Welfare Project Manager Name Role Phone Beto Alexander PP Unavailable Beto Alexander RP Unavailable Payers Payer name Insurance type Covered libertarian ID Authorization(s) Unknown Problems Condition Effective Dates (start - stop) Clinical Status Cervicalgia - *Chronic CHRONIC PAIN NEC - *Chronic Insomnia, Other - *Controlled Actinic keratosis - *Chronic Elevated blood pressure reading without diagnosis of hypertension - *Chronic Pain in limb - *Chronic Lumbago - *Chronic Hypertonicity of bladder - *Chronic Erectile Dysfunction - *Chronic Abdominal pain, right lower quadrant - *Chronic Lumbago - *Controlled Cervicalgia - *Controlled CHRONIC PAIN NEC - *Controlled Urinary frequency - *Resolved Elevated blood pressure reading without diagnosis of hypertension - *Controlled Pain in limb - *Chronic Other and unspecified hyperlipidemia - *Controlled Pain in joint, site unspecified - *Chronic Spinal stenosis of lumbar region [...] FB IN SOFT TISSUE - 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 APNEA NOS - Lumbago - *Symptomatic Degeneration [...] Dosage Effective Dates (start - stop) Status Percocet 5 mg-325 mg tablet take 1 tablet by oral route every 6 hours as needed 0 - No Longer Active ibuprofen 800 mg tablet take 1 tablet (800MG) by oral route 3 times every day with food 800 MG - Active aspirin 81 mg chewable tablet chew 1 tablet (81MG) by oral route every day 81 MG - Active Allergy-Time 4 mg tablet take 1 tablet (4MG) by oral route every 4 hours as needed 4 MG - Active Fish Oil 1,000 mg [...] Height Weight Pulse Rate Blood Pressure Temperature /16:16:00 68.00 in 189.00 lbs 140/80 mm[Hg] 97.2 F Procedures Procedure Date Unknown Encounters Encounter Location Date Patient Visit [facility] Patient Visit [facility] Patient Visit [facility] FM Patient Visit [facility] Mur Rheum Patient Visit [facility] Patient [facility] Patient Visit [facility] Patient Visit [facility] Patient Visit [facility] Patient Visit [facility] Patient Visit [facility] Patient Visit [facility] Imm Care Patient Visit [facility] Occ Med Patient Visit [facility] Patient Visit [facility] New FM Patient Visit [facility] New FM Patient Visit Conversion Patient Visit [facility] FC Pain Patient Visit [facility]o Patient Visit [facility] New FM Patient Visit [facility] New FM Patient Visit [facility] New FM Patient Visit [facility] Patient [facility] Patient Visit [facility] Ortho Patient Visit [facility] [place] Patient Visit [facility] Ortho Patient Visit [facility] Catrina Berry Patient Visit Conversion Advance Directives Directive Effective Date Unknown
--- OUTSIDE RECORDS SUMMARY | 2016-08-24 09:24 | XMS REPORT | Referral Summary ---
Author Author [facility] Organization [facility] Address Unknown Phone Unavailable Care Team Providers Care Replanting Machine Crew Name Role Phone Nadia Alexander Primary Care Physician [phone] Encounter [facility] Date(s): 09/02/15 - 09/02/15 [facility], [address] [place] [address]- Discharge Disposition: 01-Home or Self Care Attending Physician: Ramsey Morales DO Admitting Physician: Ramsey Morales DO Referring Physician: Beto Alexander MD Vital Signs Most recent to 1 oldest [Reference Range]: Temperature Tympanic 36.5 degC [36.6-38.1 degC] *LOW* (09/02/15 9:05 AM) Peripheral Pulse 82 bpm Rate [60-100 bpm] (09/02/15 9:05 AM) Blood Pressure 140/80 mmHg [90-140/60-90 mmHg] (09/02/15 9:05 AM) SpO2 95 % (09/02/15 9:05 AM) Problem List Condition Effective Dates Status [...] Status Aleve1 Active 1causes abdominal pain Medications albuterol CFC free 90 mcg/inh inhalation aerosol 2 puffs, Inhalation, q6hr, as needed for wheezing, # 8 g, 0 Refill(s), called to pharmacy (Rx) Start Date: 02/18/15 Status: Ordered ibuprofen 800 mg oral tablet 800 mg, Oral, q6hr, as needed for pain, # 90 tabs, 0 Refill(s), Pharmacy: [facility] #[id number], 800 mg Oral q6hr,PRN:as needed for pain Start Date: 07/20/14 Status: Ordered [place] 5 mg-325 mg oral tablet 1-2 tabs, Oral, q8hr, [place] Must last 30 days NEEDS APPT PRIOR TO ADDITIONAL REFILLS, # 90 tabs, 0 Refill(s) Start Date: 10/18/14 Status: Ordered predniSONE 20 mg oral tablet 20 mg 1 tabs, Oral, Daily, X 5 days, # 5 tabs, 0 Refill(s), Pharmacy: [facility] #[id number], 1 tabs Oral Daily,x7 days Start Date: 09/02/15 Stop Date: 09/07/15 Status: Ordered PriLOSEC 40 mg oral delayed release capsule 40 mg 1 caps, Oral, Daily, before a meal, # 30 caps, 0 Refill(s), Pharmacy: [facility] #[id number], 1 caps Oral Daily,Instr:before a meal Start Date: 12/22/14 Status: Ordered Ventolin HFA 90 mcg/inh inhalation aerosol 1 puffs, Inhalation, q4hr, as needed for wheezing, # 8 g, 0 Refill(s), Pharmacy : [facility] #[id number], 1 puffs Inhalation q4hr,PRN:as needed for wheezing Start Date: 09/02/15 Status: Ordered Vitamin C 0 Refill(s) Start Date: 02/18/15 Status: Ordered vitamin E Oral, Daily, 0 Refill(s) Start Date: 02/18/15 Status: Ordered Zithromax Z-Frank 250 mg oral tablet 1 packets, Oral, Daily, as directed on package labeling, X 5 days, # 6 tabs, 0 Refill(s), Pharmacy: [facility] #[id number], 1 packets Oral Daily,x5 days, Instr:as directed [...] Extracted from: Title: Office Visit Note Author: Ramsey Morales DO Date: 09/02/15 Assessment/Plan Acute bronchitis 1. History and clinical findings consistent with viral upper respiratory tract infection. 2. His respiratory symptoms are consistent with bronchitis. He was given a breathing treatment with DuoNeb, on reassessment his wheezing had cleared completely. 3. He was dismissed to home with Ventolin 2 puffs every 4 hours for the next 24 hours and then every 4 hours as needed. 4. Prednisone 20 mg daily for 5 days. 5. At this time I do not think he would benefit from antibiotic therapy however, Zithromax was sent out to have available as a [id number] approach treatment. Indication for starting the antibiotic was discussed in detail with the patient, he voiced understanding. 6. Recommended that he follow-up with his primary care physician for farther evaluation and management. With his history of smoking inhalation and recurrent lower respiratory symptoms, I am concerned he has early COPD presentation and may need further pulmonary workup. Nasopharyngitis Recommendations as above. Ordered: Office Visit Level 4 Est 97647 Orders: albuterol, 1 puffs, Inhalation, q4hr, as needed for wheezing, # 8 g, 0 Refill(s), Pharmacy: [facility] #[id number], 1 puffs Inhalation q4hr,PRN:as needed for wheezing azithromycin, 1 packets, Oral, Daily, as directed on package labeling, X 5 days, # 6 tabs, 0 Refill(s), Pharmacy: [facility] #[id number], 1 packets Oral Daily,x5 days,Instr:as directed on package labeling predniSONE, 20 mg 1 tabs, Oral, Daily, X 5 days, # 5 tabs, 0 Refill(s), Pharmacy: [facility] #[id number], 1 tabs Oral Daily,x7 days
--- OUTSIDE RECORDS SUMMARY | 2016-08-24 09:24 | XMS REPORT | Referral Summary ---
Author Author [facility] Organization [facility] Address Unknown Phone Unavailable Care Team Providers Care Image Editor Name Role Phone JamarlilaNadia Primary Care Physician [phone] Encounter Date(s): 11/09/15 - 11/09/15 [facility] [address] [place] [address] [facility] Discharge Disposition: 01-Home or Self Care Attending Physician: Roland Gillis MD Admitting Physician: Roland Gillis MD Vital Signs No data available for [...] symptoms, # 30 mL, 12 Refill(s), Pharmacy: [facility] #[id number] Start Date: 11/09/15 Status: Ordered cetirizine 10 mg, Oral, Daily, 0 Refill(s) Start Date: 11/08/15 Status: Ordered fluticasone 50 mcg/inh nasal spray 2 sprays, Nasal, Daily, # 16 g, 12 Refill(s), Pharmacy: [facility] #[id number] Start Date: 11/09/15 Status: Ordered ibuprofen 800 mg oral tablet 800 mg, Oral, q6hr, as needed for pain, # 90 tabs, 0 Refill(s), Pharmacy: [facility] #[id number], 800 mg Oral q6hr,PRN:as needed for pain Start Date: 07/20/14 Status: Ordered oxybutynin 5 mg oral tablet See Instructions, TAKE ONE TABLET BY MOUTH TWICE A DAY NEEDED FOR URINARY DISCOMFORT, # 60 tabs, eRx: [facility] #[id number], TAKE ONE TABLET BY MOUTH TWICE A DAY NEEDED FOR URINARY DISCOMFORT Start Date: 10/23/15 Status: Ordered PriLOSEC 40 mg oral delayed release capsule 40 mg 1 caps, Oral, Daily, # 30 caps, 3 Refill(s), Pharmacy: [facility] # [id number], 1 caps Oral Daily Start Date: 11/08/15 Status: Ordered Singulair 10 mg oral tablet 10 mg 1 tabs, Oral, qPM, # 30 tabs, 0 Refill(s), Pharmacy: [facility] # [id number], 1 tabs Oral qPM Start Date: 09/20/15 Status: Ordered Ventolin HFA 90 mcg/inh inhalation aerosol 1 puffs, Inhalation, q4hr, as needed for wheezing, # 8 g, 0 Refill(s), Pharmacy : [facility] #[id number], 1 puffs Inhalation q4hr,PRN:as needed for wheezing [...]
--- OUTSIDE RECORDS SUMMARY | 2016-08-24 09:24 | XMS REPORT | Referral Summary ---
Author Author [facility] Organization [facility] Address Unknown Phone Unavailable Care Team Providers Care Hood Maker Name Role Phone Nadia Alexander Primary Care Physician [phone] Encounter VC Date(s): 12/22/14 - 12/22/14 [facility] [address] [place] [id number] Discharge Disposition: 01-Home or Self Care Attending Physician: Beto Alexander MD Admitting Physician: Beto Alexander MD Vital Signs Most recent to 1 oldest [Reference Range]: Blood Pressure 140/80 mmHg [90-140/60-90 mmHg] (12/22/14 10:09 AM) Problem List Condition Effective Dates Status [...] pain, # 90 tabs, 0 Refill(s), Pharmacy: [facility] #[id number], 800 mg Oral q6hr,PRN:as needed for pain Start Date: 07/20/14 Status: Ordered Myrtle 5 mg-325 mg oral tablet 1-2 tabs, Oral, q8hr, N. [place] Must last 30 days NEEDS APPT PRIOR TO ADDITIONAL REFILLS, # 90 tabs, 0 Refill(s) Start Date: 10/18/14 Status: Ordered PriLOSEC 40 mg oral delayed release capsule 40 mg 1 caps, Oral, Daily, before a meal, # 30 caps, 0 Refill(s), Pharmacy: [facility] #[id number], 1 caps Oral Daily,Instr:before a meal Start Date: 12/22/14 Status: Ordered Vitamin C 0 Refill(s) Start Date: 02/18/15 Status: Ordered vitamin E Oral, Daily, 0 Refill(s) Start Date: 02/18/15 Status: Ordered Results Hematology Most recent to 1 oldest [Reference Range]: WBC [4.8-10.8 7.8 10*3/uL 10*3/uL] (12/22/14 10:42 AM) RBC [4.60-6.20 4.99 10*6/uL 10*6/uL] (12/22/14 10:42 AM) Hgb [14.0-18.0 15.8 gm/dL gm/dL] (12/22/14 10:42 AM) Hct [42.0-52.0 %] 44.2 % (12/22/14 10:42 AM) MCV [82.0-99.0 fL] 88.6 fL (12/22/14 10:42 AM) MCH [27.0-32.0 pg] 31.7 pg (12/22/14 10:42 AM) MCHC [32.0-36.0 35.7 gm/dL gm/dL] (12/22/14 10:42 AM) RDW [11.5-14.5 %] 13.1 % (12/22/14 10:42 AM) Platelet [150-400 241 10*3/uL 10*3/uL] (12/22/14 10:42 AM) MPV [8.8-14.8 fL] 10.5 fL (12/22/14 10:42 AM) Chemistry Most recent to 1 oldest [Reference Range]: Sodium Lvl [135-144 141 mEq/L mEq/L] (12/22/14 10:42 AM) Potassium Lvl 4.5 mEq/L [3.5-5.2 mEq/L] (12/22/14 10:42 AM) Chloride [99-111 108 mEq/L mEq/L] (12/22/14 10:42 AM) CO2 [23-31 mEq/L] 26 mEq/L (12/22/14 10:42 AM) AGAP [3-20] 7 (12/22/14 10:42 AM) BUN [8-26 mg/dL] 14 mg/dL (12/22/14 10:42 AM) Glucose Lvl [70-99 88 mg/dL mg/dL] (12/22/14 10:42 AM) Creatinine Lvl 0.79 mg/dL [0.72-1.25 mg/dL] (12/22/14 10:42 AM) eGFR [>60 mL/min] >60 mL/min 1 (12/22/14 10:42 AM) Calcium Lvl 9.8 mg/dL [8.9-10.5 mg/dL] (12/22/14 10:42 AM) Albumin Lvl [3.5-5.0 4.2 gm/dL gm/dL] (12/22/14 10:42 AM) Total Protein 6.4 gm/dL [6.4-8.3 gm/dL] (12/22/14 10:42 AM) Globulin [1.8-4.0 2.2 gm/dL gm/dL] (12/22/14 10:42 AM) ALT [0-55 U/L] 64 U/L *HI* (12/22/14 10:42 AM) AST [5-34 U/L] 33 U/L (12/22/14 10:42 AM) Alk Phos [40-150 78 U/L U/L] (12/22/14 10:42 AM) Bili Total [0.2-1.2 0.7 mg/dL mg/dL] (12/22/14 10:42 AM) Lipase Lvl [8-78 63 U/L U/L] (12/22/14 10:42 AM) Amylase Lvl [25-125 108 U/L U/L] (12/22/14 10:42 AM) 1Result Comment: Multiply eGFR results by 1.21 for race. Immunizations Vaccine Date Refusal Reason influenza virus vaccine, inactivated 02/14/14 influenza virus vaccine, live 03/02/10 Procedures Procedure Date Related Diagnosis Body Site Collection of venous blood by venipuncture 12/22/14 Transforaminal approach - Right L2-3, L3-4 01/14/13 [...] Author: Beto Alexander MD Date: Family Medicine Gastritis, Adult Gastritis is soreness and swelling (inflammation) of the lining of the stomach. Gastritis can develop as a sudden onset (acute) or long-term (chronic) condition. If gastritis is not treated, it can lead to stomach bleeding and ulcers. CAUSES Gastritis occurs when the stomach lining is weak or damaged. Digestive juices from the stomach then inflame the weakened stomach lining. The stomach lining may be weak or damaged due to viral or bacterial infections. One common bacterial infection is the Helicobacter pylori infection. Gastritis can also result from excessive alcohol consumption, taking certain medicines, or having too much acid in the stomach. SYMPTOMS In some cases, there are no symptoms. When symptoms are present, they may include: Pain or a burning sensation in the upper abdomen. Nausea. Vomiting. An uncomfortable feeling of fullness after eating. DIAGNOSIS Your caregiver may suspect you have gastritis based on your symptoms and a physical exam. To determine the cause of your gastritis, your caregiver may perform the following: Blood or stool tests to check for the H pylori bacterium. Gastroscopy. A thin, flexible tube (endoscope) is passed down the esophagus and into the stomach. The endoscope has a light and camera on the end. Your caregiver uses the endoscope to view the inside of the stomach. Taking a tissue sample (biopsy) from the stomach to examine under a microscope. TREATMENT Depending on the cause of your gastritis, medicines may be prescribed. If you have a bacterial infection, such as an H pylori infection, antibiotics may be given. If your gastritis is caused by too much acid in the stomach, H2 blockers or antacids may be given. Your caregiver may recommend that you stop taking aspirin, ibuprofen, or other nonsteroidal anti-inflammatory drugs (NSAIDs). HOME CARE INSTRUCTIONS Only take [id number] or prescription medicines as directed by your caregiver. If you were given antibiotic medicines, take them as directed. Finish them even if you start to feel better. Drink enough fluids to keep your urine clear or pale yellow. Avoid foods and drinks that make your symptoms worse, such as: Caffeine or alcoholic drinks. Chocolate. Peppermint or mint flavorings. Garlic and onions. Spicy foods. Strong fruits, such as oranges, aston, or limes. Tomato-based foods such as sauce, chili, salsa, and pizza. Fried and fatty foods. Eat small, frequent meals instead of large meals. SEEK IMMEDIATE MEDICAL CARE IF: You have black or dark red stools. You vomit blood or material that looks like coffee grounds. You are unable to keep fluids down. Your abdominal pain gets worse. You have a fever. You do not feel better after 1 week. You have any other questions or concerns. MAKE SURE YOU: Understand these instructions. Will watch your condition. Will get help right away if you are not doing well or get worse. Document Released: 05/13/2002 Document Revised: 11/17/2012 Document Reviewed: [facility] Patient Information 2015 [employer]. This information is not intended to replace advice given to you by your health care provider. Make sure you discuss any questions you have with your health care provider. No follow up information was provided. Extracted from: Title: Office Visit Note Author: Beto Alexander MD Date: 12/22/14 Assessment/Plan Abdominal pain Lab pending. Trial of prilosec 40mg po daily. Consider [facility] Surgeryconsult and EGD when willing. Declined today. Acute GI bleeding, GI bleed See above. Stop all nsaids. Prilosec given. Lab pending. A work/ school note was offered and deferred by the patient. Second opinion pending for knee pain. MRI was normal 11/30. To Dr. Titus/Jeremy at his request. Ordered: Amylase Level CBC Hemogram Comprehensive Metabolic Panel Helicobacter pylori Antibody IgG Lipase Level Occult Blood X 3, Stool Chronic pain of right knee Degenerative disc disease - lumbar/lumbosacral Elevated blood pressure This issue is stable and appropriate refills, lab, and f/u have been discussed. The patient reports their blood pressure has been stable at home and is not having any significant or related problems. There has been no chest pain, chest pressure, soa/guido. Elevated blood sugar This issue is stable and appropriate refills, lab, and f/ u have been discussed. Addendum To ER if worse in any way. by Beto Alexander MD on December 22, 2014 10:41:31 CDT
--- OUTSIDE RECORDS SUMMARY | 2016-08-24 09:24 | XMS REPORT | Referral Summary ---
Author Author [facility] Organization [facility] Address Unknown Phone Unavailable Care Team Providers Care Speech/Language Therapist Name Role Phone Fanirichard Nadia Primary Care Physician [phone] Encounter [facility] [id number] Date(s): 11/22/14 - 11/22/14 [facility] [facility] [address] [place], [place] [address] Discharge Diagnosis: Knee pain Discharge Disposition: 01-Home or Self Care Attending Physician: Gabo Gardiner MD Admitting Physician: Gabo Gardiner MD Vital Signs Most recent to 1 oldest [Reference Range]: Respiratory Rate 18 br/min [14-20 br/min] (11/22/14 1:38 PM) Problem List Condition Effective Dates Status [...] Refill(s), Pharmacy: [facility] #[id number], 800 mg Oral q6hr,PRN:as needed for pain Start Date: 07/20/14 Status: Ordered [place]on 5 mg-325 mg oral tablet 1-2 tabs, Oral, q8hr, N. Dillons Must last 30 days NEEDS APPT PRIOR TO ADDITIONAL REFILLS, # 90 tabs, 0 Refill(s) Start Date: 10/18/14 Status: Ordered PriLOSEC 40 mg oral delayed release capsule 40 mg 1 caps, Oral, Daily, before a meal, # 30 caps, 0 Refill(s), Pharmacy: [facility] #[id number], 1 caps Oral Daily,Instr:before a meal Start Date: 12/22/14 Status: Ordered Vitamin C 0 Refill(s) Start Date: 02/18/15 Status: Ordered vitamin E Oral, Daily, 0 Refill(s) Start Date: 02/18/15 Status: Ordered Results No data available for this section Immunizations Vaccine Date Refusal Reason influenza virus vaccine, inactivated 02/14/14 influenza virus vaccine, live 10/1/10 Procedures Procedure Date Related Diagnosis Body Site [...] Visit Note Author: Gabo Gardiner MD Date: 11/22/14 Assessment/Plan Knee pain He has knee pain with by history it sounds like he has a meniscus tear. Talk with him about options of treatment we'll go ahead and get an MRI study of his right knee and see him back after that. Ordered: Office Visit Level 3 New [id number]
--- NOTE | 2016-08-24 09:26 | NUR ---
PROVIDER DR. ARITA IN ROOM WITH PT.
--- OUTSIDE RECORDS SUMMARY | 2016-08-24 09:26 | XMS REPORT | Continuity of Care Document ---
Author Author [facility] Organization [facility] Address Unknown Phone Unavailable Allergies Active [...] 11/09/15 12:03 Horse Dander IgE <0.35 kU/L [place] IgE - 11/09/15 12:03 [place] IgE <0.35 kU/L TSH with Reflex Free T4 - 01/10/16 11:18 TSH with Reflex Free T4 1.87 uIU/mL 0.35- 4.94 Encounters ACCT No. Visit Date/Time Discharge Status Pt. Type Provider Facility Loc./Unit Complaint [id number] 08/02/2013 16:16:00 08/02/2013 23 :59:59 CLS Outpatient [id number] 07/08/2013 08:11:00 07/08/2013 23 :59:59 CLS Outpatient [id number] 07/07/2013 10:54:00 07/07/2013 23 :59:59 CLS Outpatient
[2016-08-24] MEDS ORDERED: OXYB5SYR2 PO (09:28)
--- NOTE | 2016-08-24 09:31 | NUR ---
PORT XRAY PORTABLE CHEST XRAY IN ROOM.
[2016-08-24 09:36] LABS: HCT - HEMATOCRIT 45.3 % (41-53); HGB - HEMOGLOBIN 15.8 GM/DL (13.5-17.5); MEAN CORPUSCULAR HGB 31.5 UUG (26-34); MEAN CORPUSCULAR HGB CONC(MCHC 34.9 GM/DL (31-37); MEAN CORPUSCULAR VOLUME 90.2 UM3 (80-100); RED BLOOD COUNT 5.02 M/MM3 (4.50-5.90); WBC - WHITE BLOOD COUNT 6.2 T/MM3 (4.5-11.0)
[2016-08-24 09:37] LABS: LYMPHOCYTES % (AUTO) 37.8 % (23-45); MEAN PLATELET VOLUME 9.9 UM3 (9.4-12.4); MONOCYTES % (AUTO) 9.9 % (0-9.0); NEUTROPHILS % (AUTO) 47.4 % (33-66)
[2016-08-24 09:38] LABS: BASOPHILS % (AUTO) 0.5 % (0-2); EOSINOPHILS # (AUTO) 0.3 T/MM3 (0-0.5); EOSINOPHILS % (AUTO) 4.2 % (0-4); IMMATURE GRANULOCYTE # (AUTO) 0.01 T/MM3 (0.00-0.03); IMMATURE GRANULOCYTE % (AUTO) 0.2 % (0.0-0.5); LYMPHOCYTES # (AUTO) 2.3 T/MM3 (1-4.8); MONOCYTES # (AUTO) 0.6 T/MM3 (0-0.8); NEUTROPHILS #(AUTO)-ABSOLUTE 2.9 T/MM3 (1.8-7.7)
[2016-08-24 09:52] LABS: ALBUMIN 4.4 G/DL (3.5-5.0); ALBUMIN/GLOBULIN RATIO 1.5 RATIO (1.1-2.2); ALKALINE PHOSPHATASE 74 U/L (38-126); ALT (SGPT) 58 U/L (21-72); ANION GAP 13 MEQ/L (5-15); AST (SGOT) 35 U/L (17-59); BUN/CREATININE RATIO 26 RATIO (6-26); CALCIUM 9.5 MG/DL (8.4-10.2); CHLORIDE 109 MEQ/L (98-107); CO2 - CARBON DIOXIDE 21 MEQ/L (22-30); CREATININE 0.7 MG/DL (0.8-1.5); GLOMERULAR FILTRATION RATE 116; GLUCOSE 113 MG/DL (75-110); LIPASE 79 U/L (23-300); POTASSIUM 4.3 MEQ/L (3.6-5); SODIUM 143 MEQ/L (134-144); TOTAL PROTEIN 7.3 G/DL (6.3-8.2)
--- NOTE | 2016-08-24 10:01 | ERPDOC ---
Departure Disposition Decision Date: Aug 24, 2016 Disposition Decision Time: 12:31 Disposition: 01 DISCHARGED HOME, SELF-CARE Impression Impression Impression: Primary Impression: Atypical chest pain Severity: Mild Condition: Improved Seen By: Physician only Referrals: ROSAS RUIZ MD 2 Days JAKOB HAMILTON MD (PCP/Family) Patient Instructions: Noncardiac Chest Pain (ED) Problems/Meds/Labs Reviewed?: Yes Medications reviewed and manag: Yes Follow up care ordered?: Yes Mental Status: Alert, Oriented HPI - Chest Pain General Chief Complaint: Chest Pain Stated Complaint: CP Time Seen by Provider: 09:20 Source: patient Exam Limitations: no limitations HPI - Chest Pain Initial Comments 56-year-old male presents to emergency department with a chief complaint of chest discomfort. Patient also notes feeling slightly anxious. Patient was putting away the dishes at home approximately 0800 and he noticed a very mild pressure in the center of his chest. No radiation. He does not note anything that makes his symptoms any better or any worse. No other complaints or associated symptoms. Patient was at home when the symptoms began. Symptoms have been persistent in nature since onset. No history of coronary artery disease and the patient. Occurred At: home Onset/Timing: Constant Aspirin Treatment Today: 81 mg x 4, provided by ED Allergies: Coded Allergies: naproxen (Unverified Adverse Reaction, Unknown, STOMACH PAIN, 12/30/14) Past History Past Medical History Pt denies signifigant PMH Cardiac: other Surgical History Denies Surgeries Family History Family History: Negative Vaccines Hx Influenza Vaccination: Yes (FALL 2013) Hx Pneumococcal Vaccination: No Hx Tetanus, Diptheria, Pertuss: Yes (3YRS AGO - 2011) Social History Smoking Status: Never smoker Substance Use Type: does not use Alcohol Intake: none Review of Systems Constitutional Constitutional: DENIES: chills, fever Eyes General: DENIES: erythema, exudate Lids/Accessories: DENIES: erythema, swelling Vision: DENIES: acuity, blurring ENMT Ears: DENIES: drainage, erythema Hearing: DENIES: hearing loss Balance: DENIES: ataxia, falling to one side Sinuses: DENIES: congestion, pain Nose: DENIES: nosebleeds, pain Mouth/Throat: DENIES: painful swallowing, sore throat Teeth: DENIES: pain Jaw: DENIES: pain Cardiovascular Cardiac: chest pain, DENIES: dyspnea on exertion Rhythm/Rate: DENIES: irregular beat, palpitations Vascular: DENIES: pedal edema, unilateral swelling Pulmonary Respiratory: DENIES: cough, dyspnea, pleuritic chest pain, sputum GI Upper Abdomen: DENIES: nausea, pain, vomiting Lower Abdomen: DENIES: diarrhea, pain General: DENIES: dysuria, pain Musculoskeletal General: DENIES: pain, tenderness Integumentary Skin: DENIES: itching, rash Neurological General: DENIES: headache, numbness, weakness Psychiatric Psychiatric: DENIES: emotional instability, suicidal ideation/attempt Endocrine Endocrine: DENIES: polydipsia, polyphagia Hematologic/Lymphatic Hematologic/Lymphatic: DENIES: frequent nosebleeds, lymphadenopathy Allergic/Immunological Allergic/Immunoligical: DENIES: allergic reactions, hives Physical Exam General General Nourishment: well nourished, well developed, appears stated age, no acute distress, adult General Body Habitus: well groomed Vitals and Pain First Documented Vital Signs Date Time Temp Pulse Resp B/P Pulse Ox O2 Delivery O2 Flow Rate FiO2 08/24/16 09:18 97.8 63 14 154/79 95 Room Air Weight: Kilograms: 86.600 Height (feet): 5 Height (inches): 8.00 Triage Pain Scale: RN VS reviewed by Provider: Yes Normal Exams: Head: Normocephalic w/o trauma Eyes: Pupils are PERRLA w/ EOMI, No scleral icterus, irritation, or foreign bodies noted ENMT: No facial trauma, nasal exudates, pharyngeal erythema, or exudates are noted Dental: No fractured, loose, or missing teeth noted Neck: Full range of motion, without adenopathy, JVD, bruits or thyromegaly Chest/Resp: Clear all piper, with good airflow, and symmetry bilaterally CV: Regular rate and rhythm, without murmur or gallop, Pulses 2+ all extremities, capillary refill, <2 seconds all ext., no pedal edema noted Abdomen: Bowel sounds positive, soft, non-tender, non-distended, no hepatosplenomegaly, masses or bruits noted Lymphatic: No lymphadenopathy, or lymphedema noted Musculoskeletal: No tenderness, or deformity noted, good range of motion, all extremities Integumentary: No rashes, hives, or bruising noted, hair and nails, without abnormality Neurologic: Patient is alert, and oriented, cranial nerves, motor/sensory/ cerebellar, exams w/o gross deficits, to observation Psychiatric: Patient exhibits, appropriate attention, emotion and affect Differential Diagnoses Considering: Acute WA, Anxiety/Panic, PSVT, Pulmonary Embolus Progress Results/Orders Orders Procedure Category Date Status Time Cbc W/Auto LAB 08/24/16 Complete Diff-Reflex Manual Cmp - Comprehensive LAB 08/24/16 Complete Metabolic Troponin I W LAB 08/24/16 Complete Hemolysis Index Chest 1 View RAD 08/24/16 Taken 09:24 EKG EKG 08/24/16 Taken Lipase LAB 08/24/16 Complete D-Dimer LAB 08/24/16 Complete 10:09 EKG EKG 08/24/16 Taken Troponin I W LAB 08/24/16 Complete Hemolysis Index 11:52 Aspirin (Asa) PHA 08/25/16 Complete 09:00 Lab Results Laboratory Tests Test 08/24/16 09:30 08/24/16 12:06 White Blood Count 6.2T/MM3 Red Blood Count 5.02M/MM3 Hemoglobin 15.8GM/DL Hematocrit 45.3% Mean Corpuscular Volume 90.2UM3 Mean Corpuscular Hemoglobin 31.5UUG Mean Corpuscular Hemoglobin Concent 34.9GM/DL RDW Standard Deviation 40.9FL Platelet Count 234T/MM3 Mean Platelet Volume 9.9UM3 Immature Granulocyte % (Auto) 0.2% Neutrophils (%) (Auto) 47.4% Lymphocytes (%) (Auto) 37.8% Monocytes (%) (Auto) 9.9% Eosinophils (%) (Auto) 4.2% Basophils (%) (Auto) 0.5% Absolute Immature Granulocyte (auto 0.01T/MM3 Absolute Neutrophils (auto) 2.9T/MM3 Absolute Lymphocytes (auto) 2.3T/MM3 Absolute Monocytes (auto) 0.6T/MM3 Absolute Eosinophils (auto) 0.3T/MM3 Absolute Basophils (auto) 0.0T/MM3 D-Dimer < 150NG/ML Turbidity < 20 Sodium Level 143MEQ/L Potassium Level 4.3MEQ/L Chloride Level 109MEQ/L Carbon Dioxide Level 21MEQ/L Anion Gap 13MEQ/L Blood Urea Nitrogen 18.0MG/DL Creatinine 0.7MG/DL Glomerular Filtration Rate Calc 116 BUN/Creatinine Ratio 26RATIO Glucose Level 113MG/DL Calculated Osmolality 278MOSM/KG Calcium Level 9.5MG/DL Total Bilirubin 0.70MG/DL Icterus Index < 2 Aspartate Amino Transf (AST/SGOT) 35U/L Alanine Aminotransferase (ALT/SGPT) 58U/L Alkaline Phosphatase 74U/L Troponin I < 0.012ng/ml < 0.012ng/ml Total Protein 7.3G/DL Albumin 4.4G/DL Globulin 2.9G/DL Albumin/Globulin Ratio 1.5RATIO Lipase 79U/L Chemistry Specimen Hemolysis < 15 < 15 Medications Current ED Medications Aspirin (ASA) 324 mg DAILY PO Last administered on 08/24/16t 12:41; Start 08/25 at 09:00; Stop 08/25/16 at 09:00; Status DC Progress Progress Labs/imaging were discussed in detail with the patient and questions are answered. Patient is pain-free in the emergency department at this time. Patient's pain resolved on its own. Patient has 2 negative EKGs taken 3 hours apart without signs of ischemia. Patient has 2 negative troponins taken 3 hours apart without signs of ischemia. Patient is discussed with his canvas worker Dr. Ruiz who is in agreement with the current plan of management. Patient declines offered admission to the hospital. Dr. Francis will see the patient in close follow-up on Friday. Patient had 2 negative EKGs and 2 negative troponins. This should rule out cardiac etiology in the patient. Dr. Francis verbalizes agreement with this. Patient is to follow up as instructed. Patient is to return to the emergency Department if his condition worsens or changes in any manner. Patient also had a negative d- dimer and chest x-ray in the emergency department. Patient is discharged home at this time in accordance with his wishes. EKG EKG : Rate: 60-100 Rhythm: sinus [place]: normal QRS: normal Intervals: normal ST/T: normal Interpreted by: signing physician EKG Comments EKG #2 - Sinus Bradycardia. 57 bpm. no STEMI. Xray Xray : Xray: CXR Portable Interpretation: Normal, Interpreted by SHALA Atkinson DO Aug 24, 2016 10:01
[2016-08-24] MEDS ORDERED: OXYB5TAB10 PO (10:27)
[2016-08-24] MEDS ORDERED: MULT1TAB69 PO (10:31)
--- NOTE | 2016-08-24 10:32 | NUR ---
STATUS PT RESTING COMFORTABLY IN CART. DENIES CHEST DISCOMFORT OR OTHER NEEDS AT THIS TIME. CALL LIGHT WITHIN REACH. VS STABLE, WILL CONTINUE TO MONITOR.
--- NOTE | 2016-08-24 10:37 | NUR ---
PROVIDER DR. ARITA AT BEDSIDE TO SPEAK WITH PT.
--- NOTE | 2016-08-24 11:01 | NUR ---
STATUS PT APPEARS TO BE RESTING COMFORTABLY IN CART. DENIES NEEDS AT THIS TIME. ADVISED WILL REPEAT TROPONIN AND EKG AT 1200. CONTINUES TO DENY CHEST DISCOMFORT. VS STABLE, WILL CONTINUE TO MONITOR.
--- NOTE | 2016-08-24 12:02 | NUR ---
LAB AT BEDSIDE FOR REPEAT TROPONIN.
[2016-08-25] MEDS ORDERED: ASPIRIN 81 MG CHEWABLE TABLET PO SCH (09:00)
--- NOTE | 2016-08-25 09:40 | DI ---
Indication: ITS.REASON: pain PROCEDURE: CHEST 1 VIEW: Encounter: Initial Comparison: December 30, 2014 FINDINGS: The lungs are clear. There is no abnormal airspace opacity, pleural effusion or pneumothorax identified. The heart size, pulmonary vasculature and mediastinum are within normal limits. No significant skeletal abnormality is seen. IMPRESSION: No acute cardiopulmonary abnormality. .
[2016-08-25 12:41] VITALS: BP 133/72; PULSE 60; RESP 16; TEMP 97.8; O2SAT 96
--- NOTE | 2016-08-25 12:41 | NUR ---
DISCHARGE WRITTEN INSTRUCTIONS REVIEWED AND SENT WITH PT. PT VERBALIZES UNDERSTANDING OF DI, DENIES QUESTIONS. PT CONTINUES TO DENY CHEST DISCOMFORT. PT AMBULATES OUT OF ED WITH STEADY GAIT ACCOMP BY SPOUSE AT THIS TIME.
== END 2016-08-24 12:41 | disposition home or self-care (01) ==
LOC: ED 09:17
DX: R07.89 Other chest pain (principal); F41.9 Anxiety disorder, unspecified
CPT/HCPCS: 36415; 80053; 83690; 84484; 85025; 85379; 93005